=== PATIENT | male | born 1950 | race Caucasian/White ===

== ENCOUNTER → 2016-11-03 | Outpatient (CLI) | payer OTHER, BC ==
[~2016-11-03] MED LIST: CHROND PO; COEN400C5 PO; GLUCOSAMINE PO; IBUP-103 PO; OMEG-112 PO
[2016-11-03 14:04] LABS: ESTIMATED AVERAGE GLUCOSE 105 mg/dl; HA1C FLAG Normal (Normal)
[2016-11-03 14:10] LABS: ALT/SGPT 22 U/L (12-78); AST/SGOT 14 U/L (15-37); BLOOD UREA NITROGEN 17 mg/dl (7-18); BUN/CREATININE RATIO 17.8 (10-20); CALCIUM 8.8 mg/dl (8.5-10.1); CARBON DIOXIDE 31 mmol/L (21-32); CHLORIDE 103 mmol/L (98-107); CREATININE 0.95 mg/dl (0.60-1.40); GLUCOSE 82 mg/dl (70-99); POTASSIUM 4.8 mmol/L (3.5-5.1); SODIUM 140 mmol/L (136-145)
[2016-11-03 14:15] LABS: ALB/GLOB RATIO 1.3 (0.9-2); ALKALINE PHOSPHATASE 86 U/L (45-117)
== END | disposition home or self-care (01) ==
LOC: C.LABBC 09:53
PROVIDERS: ATTEND Internal Medicine Geriatric Medicine
DX: R97.20 Elevated prostate specific antigen [PSA] (principal); E78.5 Hyperlipidemia, unspecified; R73.9 Hyperglycemia, unspecified

== ENCOUNTER → 2016-12-22 | Outpatient (CLI) | payer OTHER, BC ==
[~2016-12-22] VITALS: Ht 175.3 cm; Wt 86.5 kg
[~2016-12-22] MED LIST changes: +ACETAMINOPHEN 500 MG TAB PO SCH; +CEFAZOLIN 2000 MG/60 ML D5W 60 ML IV SCH; +CeleBREX 200 MG CAP PO SCH; +DEXAMETHASONE 4 MG TAB PO SCH; +FAMOTIDINE 20 MG TAB PO SCH; +GABAPENTIN 300 MG CAP PO SCH; +LACTATED RINGER'S 1000ML 1,000 ML IV SCH; +LACTATED RINGER'S 1000ML 500 ML IV ONE; +LACTATED RINGER'S 1000ML IV SCH; +METOCLOPRAMIDE HCL 10 MG TAB PO SCH; +ROPIVACAINE 5MG/ML 30 ML 150 MG, BUPIVACAINE/EPINEPHR 0.5% MPF 30 ML, KETOROLAC TROMETH... INFIL SCH; +TRANEXAMIC ACID INJ 1,000 MG in SODIUM CHLORIDE 0.9% 100ML 100 ML IV SCH
[2016-12-22 08:27] VITALS: Ht 175.3 cm; Wt 86.5 kg
--- NOTE | 2016-12-22 09:01 | PAT Medication Instructions ---
Service Date Dec 22, 2016. Current Home Medication List Coenzyme Q10 (Ubidecarenone) (Coq10), 400 MG PO QAM Ibuprofen Tab (Advil), 400 MG PO PRN Medication Instructions For Your Scheduled Surgery Ibuprofen Tab (Advil), 400 MG PO PRN (not taking currently) - Hold the following medications 2 weeks prior to surgery: Coenzyme Q10 (Ubidecarenone) (Coq10), 400 MG PO QAM If you have any questions please call us at [phone] or [phone] ( [place]) or [phone]
--- NOTE | 2016-12-22 09:31 | DIAGNOSTIC IMAGING REPORT ---
TWO VIEW CHEST CLINICAL HISTORY: Preoperative examination. FINDINGS: PA and lateral chest radiographs are compared to study dated 08/17/2012. The cardiomediastinal silhouette is unremarkable. The lungs and pleural spaces are clear. There is no pneumothorax. The bony thorax appears intact. IMPRESSION: No active disease in the chest. Electronically signed by: Gabe Payne M.D. 12/22/2016 9:29 AM Dictated Date/Time: 12/22/2016 9:29 AM
[2016-12-22 09:37] LABS: BASO % 0.3 %; BASO ABS # 0.02 K/uL (0-0.2); COMPLETE YES; EOS % 3.4 %; HEMATOCRIT 43.1 % (42-52); IG% 0.2 %; LYMPH % 26.5 %; LYMPH ABS # 1.55 K/uL (1.2-3.4); MEAN CELL VOLUME 94.7 fL (80-100); MEAN CORPUSCULAR HEMOGLOBIN 32.5 pg (25-34); MEAN CORPUSCULAR HGB CONC 34.3 g/dl (32-36); MEAN PLATELET VOLUME 10.8 fL (7.4-10.4); MONO % 8.5 %; NEUT % 61.1 %; PLATELET COUNT 216 K/uL (130-400); RED BLOOD COUNT 4.55 M/uL (4.7-6.1); WHITE BLOOD COUNT 5.85 K/uL (4.8-10.8)
[2016-12-22 09:42] LABS: URINE APPEARANCE CLEAR (CLEAR); URINE BILIRUBIN NEG (NEG); URINE COLOR YELLOW; URINE NITRITE NEG (NEG); URINE PH 5.5 (4.5-7.5); URINE SPECIFIC GRAVITY 1.009 (1.000-1.030); UROBILINOGEN NEG (NEG)
[2016-12-22 09:45] LABS: MANUAL MICROSCOPIC REQUIRED? NO; REVIEW REQ? NO
[2016-12-22 09:52] LABS: PARTIAL THROMBOPLASTIN RATIO 0.9; PROTHROMBIN TIME (PATIENT) 10.3 SECONDS (9.0-12.0)
[2016-12-22 10:08] LABS: BUN/CREATININE RATIO 14.6 (10-20); CALCIUM 9.1 mg/dl (8.5-10.1); CREATININE 0.94 mg/dl (0.60-1.40); POTASSIUM 4.9 mmol/L (3.5-5.1)
[2016-12-22 10:16] LABS: ESTIMATED AVERAGE GLUCOSE 111 mg/dl; HA1C FLAG Normal (Normal)
--- NOTE | 2017-01-07 09:42 | HISTORY & PHYSICAL EXAMINATION ---
DATE OF ADMISSION: 01/08/2017 CHIEF COMPLAINT: Right knee pain. HISTORY OF PRESENT ILLNESS: The patient is a 66-year-old male with known osteoarthritis about his right knee. He had previous right knee arthroscopic surgery approximately 6 months ago. He continues to have ongoing pain and disability. He did have chondral changes noted at the time of his arthroscopy. He had previous left total knee arthroplasty without complication and now desires to proceed with right total knee arthroplasty. PAST MEDICAL HISTORY: Hyperlipidemia, BPH. PAST SURGICAL HISTORY: Left total knee arthroplasty, right knee arthroscopy. MEDICATIONS: None. ALLERGIES: DOXYCYCLINE, PERCOCET, AND LATEX. SOCIAL HISTORY AND REVIEW OF SYSTEMS: Noncontributory. PHYSICAL EXAMINATION: GENERAL: Well-nourished, well-developed, thin elderly male who appears his stated age. HEAD, EYES, EARS, NOSE, AND THROAT: Normocephalic, atraumatic, extraocular movements intact, oropharynx pink and moist. NECK: Supple without adenopathy. LUNGS: Clear to auscultation bilaterally. HEART: Regular rate and rhythm. ABDOMEN: Soft, nontender, nondistended. EXTREMITIES: The upper extremity within normal limits. The right knee has a slight varus alignment. He complains primarily of medial compartment pain. He has mild crepitus with range of motion. X-RAYS: X-rays were reviewed. He has a slight varus aligned knee. He has near bone on bone arthritis of the medial compartment with near complete loss of the joint space. He has mild degenerative change about the lateral and patellofemoral compartments. ASSESSMENT: Right knee degenerative joint disease. PLAN: Risks versus benefits were discussed. Consent was obtained. The patient's primary care physician is Dr. Abner Coates. Will proceed with right total knee arthroplasty upon preoperative workup and medical clearance.
--- NOTE | 2017-01-21 09:03 | HISTORY & PHYSICAL EXAMINATION ---
DATE OF ADMISSION: 01/22/2017 CHIEF COMPLAINT: Right knee pain. HISTORY OF PRESENT ILLNESS: The patient is a 66-year-old male with known osteoarthritis about his right knee. He had a previous left total knee arthroplasty several years ago with good success. He now has ongoing pain and disability with activities of daily living due to his right knee pain. He now desires to proceed with right total knee arthroplasty. PAST MEDICAL HISTORY: Hyperlipidemia, osteoarthritis, and BPH. PAST SURGICAL HISTORY: Left knee as above and right knee arthroscopy July 2016. MEDICATIONS: None. ALLERGIES: INCLUDE DOXYCYCLINE. SOCIAL HISTORY AND REVIEW OF SYSTEMS: Noncontributory. PHYSICAL EXAMINATION: GENERAL: Well-nourished, well-developed elderly male who appears his stated age. HEENT: Normocephalic, atraumatic, extraocular movements intact, oropharynx pink and moist. NECK: Supple without adenopathy. LUNGS: Clear to auscultation bilaterally. HEART: Regular rate and rhythm. ABDOMEN: Soft, nontender. EXTREMITIES: The upper extremity within normal limits. The right knee has a slight varus alignment. He complains primarily of medial compartment pain. His range of motion is from 0-120 degrees. X-RAYS: X-rays were reviewed. He has a slight varus aligned knee. He has near bone on bone arthritis of the medial compartment with near complete loss of the joint space. He has mild degenerative change about the patellofemoral joint. ASSESSMENT: Right knee degenerative joint disease. PLAN: Risks versus benefits were discussed and consent was obtained. The patient's primary care physician is Dr. Abner Coates. Will proceed with right total knee arthroplasty upon preoperative workup and medical clearance.
--- NOTE | 2017-03-04 12:23 | CODING QUERY MEDICAL NECESSITY ---
SUPPORTING DIAGNOSIS NEEDED Dr. Gaming, A supporting diagnosis is required for the test/procedure performed on this patient in order for us to be reimbursed by the patient's insurance. Please provide a supporting diagnosis for the following test/procedure listed below next to the test name along with your signature. *If there is no additional diagnosis for this patient that would support the following test/procedure please document that below next to the test/procedure. Test(s)/Procedure(s) that require a supporting diagnosis: * [id number] GLYCATED HEMOGLOBIN DIAGNOSIS: DATE OF SERVICE: 12/22/16 Provider Signature: Date: Thank you [facility] Information Management Once completed, please kindly fax back to [phone] For questions please call [phone]
== END | disposition home or self-care (01) ==
LOC: C.LAB 08:00 → EDSTATUS 01-22 14:41
DX: Z01.812 Encounter for preprocedural laboratory examination (principal); Z01.810 Encounter for preprocedural cardiovascular examination; M17.11 Unilateral primary osteoarthritis, right knee

== ENCOUNTER → 2017-01-07 | Outpatient (CLI) | payer OTHER, BC ==
[~2017-01-07] MED LIST changes: -ACETAMINOPHEN 500 MG TAB PO SCH; -CEFAZOLIN 2000 MG/60 ML D5W 60 ML IV SCH; -CHROND PO; -CeleBREX 200 MG CAP PO SCH; -DEXAMETHASONE 4 MG TAB PO SCH; -FAMOTIDINE 20 MG TAB PO SCH; -GABAPENTIN 300 MG CAP PO SCH; -GLUCOSAMINE PO; -LACTATED RINGER'S 1000ML 1,000 ML IV SCH; -LACTATED RINGER'S 1000ML 500 ML IV ONE; -LACTATED RINGER'S 1000ML IV SCH; -METOCLOPRAMIDE HCL 10 MG TAB PO SCH; -OMEG-112 PO; -ROPIVACAINE 5MG/ML 30 ML 150 MG, BUPIVACAINE/EPINEPHR 0.5% MPF 30 ML, KETOROLAC TROMETH... INFIL SCH; -TRANEXAMIC ACID INJ 1,000 MG in SODIUM CHLORIDE 0.9% 100ML 100 ML IV SCH
== END | disposition home or self-care (01) ==
LOC: C.LABSPEC 12:09
PROVIDERS: ATTEND Dermatology
DX: L08.9 Local infection of the skin and subcutaneous tissue, unspecified (principal)

== ENCOUNTER 2017-11-12 06:11 | Inpatient (IN) | payer OTHER, BC ==
--- NOTE | 2017-10-13 12:47 | PAT Medication Instructions ---
Service Date Oct 13, 2017. Current Home Medication List Coenzyme Q10 (Ubidecarenone) (Coq10), 400 MG PO QAM Qgtqwgsvrmg-Hwwtwqfpnhx-Pdu C- (Glucosamine Chondroitin), 1 CAP PO QAM Medication Instructions For Your Scheduled Surgery - Hold the following medications 2 weeks prior to surgery: Coenzyme Q10 (Ubidecarenone) (Coq10), 400 MG PO QAM Dydcbddspty-Syhximhnext-Jvf C- (Glucosamine Chondroitin), 1 CAP PO QAM If you have any questions please call us at [phone] or [phone] or [phone]
[2017-10-13 13:08] LABS: BASO % 0.3 %; BASO ABS # 0.02 K/uL (0-0.2); EOS % 3.5 %; EOS ABS # 0.23 K/uL (0-0.5); HEMATOCRIT 43.6 % (42-52); IG# 0.01 K/uL (0.00-0.02); LYMPH % 25.6 %; MEAN CELL VOLUME 95.2 fL (80-100); MEAN CORPUSCULAR HEMOGLOBIN 32.8 pg (25-34); MEAN CORPUSCULAR HGB CONC 34.4 g/dl (32-36); MEAN PLATELET VOLUME 10.4 fL (7.4-10.4); MONO % 8.3 %; MONO ABS # 0.55 K/uL (0.11-0.59); NEUT % 62.1 %; NEUT ABS # 4.13 K/uL (1.4-6.5); PLATELET COUNT 230 K/uL (130-400); RED CELL DISTRIBUTION WIDTH CV 12.8 % (11.5-14.5); RED CELL DISTRIBUTION WIDTH SD 44.6 fL (36.4-46.3); WHITE BLOOD COUNT 6.64 K/uL (4.8-10.8)
[2017-10-13 13:18] LABS: PTT PATIENT 24.3 SECONDS (21.0-31.0)
[2017-10-13 13:25] LABS: HEMOGLOBIN A1C 5.5 % (4.5-5.6)
[2017-10-13 14:51] LABS: ALBUMIN 3.9 gm/dl (3.4-5.0); BLOOD UREA NITROGEN 19 mg/dl (7-18); CALCIUM 9.1 mg/dl (8.5-10.1); CARBON DIOXIDE 29 mmol/L (21-32); CREATININE 0.88 mg/dl (0.60-1.40); GLUCOSE 89 mg/dl (70-99); POTASSIUM 5.2 mmol/L (3.5-5.1); SODIUM 137 mmol/L (136-145)
[2017-10-13 15:44] VITALS: Ht 175.3 cm; Wt 83.6 kg
--- NOTE | 2017-10-14 15:12 | HISTORY & PHYSICAL EXAMINATION ---
DATE OF ADMISSION: 10/12/2017 CHIEF COMPLAINT: Right knee pain. HISTORY OF PRESENT ILLNESS: Jordan is a 67-year-old male with a 2-year history of right knee pain. The patient rates his pain a 10/10. He has pain with his daily activities. He has limited standing and walking tolerance. Pain is worse with weightbearing. The patient has had injections, physical therapy, ice and bracing over the years without relief. He has failed conservative treatment and is scheduled for right knee replacement. PAST MEDICAL HISTORY: Benign. He denies heart disease, diabetes or DVT. PAST SURGICAL HISTORY: Left knee x3, right knee x1, left ankle ORIF, trigger finger repair, ORIF right wrist and tonsillectomy. SOCIAL HISTORY: The patient denies alcohol or tobacco use. He lives in a [address]-ram[address] home. He is and retired. FAMILY HISTORY: Negative for DVT. MEDICATIONS: None. ALLERGIES: THE PATIENT BELIEVES HE IS ALLERGIC TO A PAIN MEDICATION, but he is unsure of the name and HIS REACTION WAS HIVES. REVIEW OF SYSTEMS: See HPI. Ten other systems reviewed, all negative. PHYSICAL EXAMINATION: VITAL SIGNS: Height 5 feet 9 inches, weight 186 pounds, BMI 27. GENERAL: This is a well-developed, well-nourished male who is alert and oriented x3. Mood and affect are appropriate. HEENT: Normocephalic, atraumatic. Mucous membranes are moist and intact. NECK: Supple without lymphadenopathy. HEART: Regular rate and rhythm without murmurs, rubs or gallops. LUNGS: Clear to auscultation without wheezes or rhonchi. ABDOMEN: Soft and nontender. Bowel sounds are equal and active. EXTREMITIES: No ecchymosis, redness or warmth. He has neutral alignment. Range of motion is from 0-115 degrees with +2 laxity. He is neurovascularly intact with +5/5 strength. X-RAY EXAMINATION: AP and lateral views show joint space narrowing and osteophyte formation. IMPRESSION: Degenerative joint disease, right knee. PLAN: The patient will be admitted for a right total knee arthroplasty. We will plan on aspirin for DVT prophylaxis. The patient is ongoing use [facility] for home physical therapy, referral has been faxed. PCP is Dr. Coates at [facility].
[~2017-11-12] VITALS: Ht 175.3 cm; Wt 83.6 kg
[2017-11-12] VITALS (7 sets, daily range): BP systolic 93–123; BP diastolic 54–67; PULSE 48–74; TEMP 36.3–37.1; O2SAT 93–98
[~2017-11-12 06:11] MED LIST changes: +ACETAMINOPHEN 500 MG TAB PO SCH; +CEFAZOLIN 2000MG IV PUSH 10 ML IV SCH; +CeleBREX 200 MG CAP PO SCH; +DEXAMETHASONE 4 MG TAB PO SCH; +FAMOTIDINE 20 MG TAB PO SCH; +GABAPENTIN 300 MG CAP PO SCH; +GLUC1CAP35 PO; -IBUP-103 PO; +LACTATED RINGER'S 1000ML 1,000 ML IV SCH; +LACTATED RINGER'S 1000ML 500 ML IV SCH; +METOCLOPRAMIDE HCL 10 MG TAB PO SCH; +ROPIVACAINE 5MG/ML 30 ML 150 MG, BUPIVACAINE 0.5% MPF INJ 30 ML, EpINEphrine HCL INJ 0.... INFIL SCH
[2017-11-12] MEDS ORDERED: BUPIVACAINE 0.5 % 5 MG/1 ML PF 10ML VIAL ONE (06:22)
[2017-11-12] MEDS ORDERED: BUPIVACAINE 0.25% 30 ML VIAL ONE (06:22)
[2017-11-12] MEDS ORDERED: ASPI81TA28 PO (06:50)
--- NOTE | 2017-11-12 07:02 | History & Physical Bridge Note ---
H&P Re-Evaluation Bridge Note: I have examined the patient, reviewed the History & Physical and in the interval since the performance of the History & Physical I have noted the following changes of clinical significance: No changes noted
[2017-11-12] MEDS ORDERED: POVIDONE-IODINE OP SOLN 30 ML BTL ONE (07:04)
[2017-11-12] MEDS ORDERED: ORTHO JOINT ANESTHETIC ONE (07:04)
[2017-11-12] MEDS ORDERED: BACITRACIN 50000 UNIT VIAL ONE (07:04)
[2017-11-12] MEDS ORDERED: MIDAZOLAM HCL 1 MG/ML 2ML VIAL ONE (07:18)
[2017-11-12] MEDS: TRANEXAMIC ACID INJ 1,000 MG in SYRINGE 0 ML IV SCH ×2 (07:40→13:55)
[2017-11-12] MEDS ORDERED: FENTANYL CITRATE INJ 50 MCG/1 ML 2 ML VIAL ONE (08:22)
[2017-11-12] MEDS ORDERED: EpHEDrine SULFATE INJ 50 MG/ML AMP IV PRN (08:30)
[2017-11-12] MEDS ORDERED: LABETALOL HCL IV 5 MG/ML 20ML IV PRN (08:30)
[2017-11-12] MEDS ORDERED: FENTANYL CITRATE INJ 50 MCG/1 ML 2 ML VIAL IV PRN (08:30)
[2017-11-12] MEDS ORDERED: MEPERIDINE HCL 25 MG/ML CARP IV PRN (08:30)
[2017-11-12] MEDS ORDERED: ATROPINE SULFATE 0.1 MG/ML 5ML SYR IV PRN (08:30)
[2017-11-12] MEDS ORDERED: ONDANSETRON INJ 2 MG/ML 2 ML VIAL IV PRN ×2 (08:30→09:45)
[2017-11-12] MEDS ORDERED: HYDROmorphone INJ 1 MG/ML SYR IV PRN (08:30)
[2017-11-12] MEDS ORDERED: DEXAMETHASONE SOD INJ 4 MG/ML VIAL ONE (08:51)
[2017-11-12] MEDS ORDERED: ONDANSETRON INJ 2 MG/ML 2 ML VIAL ONE (08:51)
[2017-11-12] MEDS ORDERED: PROPOFOL IV EMULSION 10 MG/ML 20 ML VIAL IV ONE (08:51)
--- NOTE | 2017-11-12 09:09 | [facility] Post Operative Brief Note ---
Immediate Operative Summary Operative Date Nov 12, 2017. Pre-Operative Diagnosis Right Knee Degenerative Joint Disease Post-Operative Diagnosis Right Knee Degenerative Joint Disease Procedure(s) Performed Right Total Knee Arthroplasty, Cemented Surgeon Dr. Gaming Bean Snapper Surgeon(s) Elvis Lugo PA-C Estimated Blood Loss 10 mL Findings severe OA Specimens A: Right knee bone and tissue Complication(s) None Disposition Recovery Room / PACU
--- NOTE | 2017-11-12 09:22 | OPERATIVE REPORT ---
DATE OF OPERATION: 11/12/2017 PREOPERATIVE DIAGNOSIS: Osteoarthritis, right knee. POSTOPERATIVE DIAGNOSIS: Osteoarthritis, right knee. PROCEDURE: Right total knee arthroplasty. SURGEON: Dr. Gaming. SOCIAL ORGANIZATION PROFESSOR: STEVAN Hoffmann ANESTHESIA: Spinal. COMPLICATIONS: None. IMPLANTS USED: Femoral size 4, tibia size 4, tibial poly 19, and patella size 36. OPERATION AND FINDINGS: Following induction of spinal anesthesia, the patient's right leg was prepped and draped in the usual sterile manner. Limb was exsanguinated with an Esmarch bandage and tourniquet was inflated to 350 mmHg. A longitudinal incision was made anteriorly. Subcutaneous tissue was sharply dissected. Electrocautery was used for hemostasis. Prepatellar bursa was incised and median parapatellar incision was performed. Patella was everted and the knee was flexed. Fat pad was removed to aid in visualization and the anterior and posterior cruciate ligaments were removed. The medial face of the tibia was cleared of soft tissue first with a Bovie and a Medina elevator. This tissue was retracted posteriorly using a blunt Hohmann. A Vásquez retractor was used to expose the synovium above on the anterior aspect of the femur and this was removed down to bone. The PSI guide was placed on the distal femur and two pins were placed anteriorly and kept in position and two additional pins were placed distally and removed. The distal femoral cutting block was placed in position and the distal femoral cut was used in the +0 setting. Next, the cutting block was removed and the femoral 4 block was placed in the distal end of the femur. Care was taken to ensure appropriate external rotation and feeler gauge was used to ensure no notching would occur. The femoral block was centered on the distal femur and in the medial and lateral direction and was fixed using two bone screws. The gold pins were then removed. The oscillating saw was used to create the bone cuts and the distal femoral cutting block was removed and the reciprocating saw was used to further trim the femoral cuts as well as a deep in the area for the trochlear groove. Next, posterior condyle remnants were removed. Following this, a meniscal clamp and knife were utilized to remove the anterior portion of both medial and lateral meniscus. The proximal tibia PSI guide was placed into position and the proximal tibial cutting guide was screwed into position. The extra medullary alignment guide was utilized to ensure appropriate alignment. The proximal tibia was cut and the proximal tibial cutting block was removed and this bone fragment was removed. The appropriate guide was used to perform the notch cut on the distal femur and a lamina flooring machine feeder and a cochlear knife were utilized to finish both medial and lateral meniscectomies to remove any remnants of the posterior or anterior cruciate ligaments. Following this, the distal femoral component was impacted into position and blunt Karthik was used to sublux the tibia anteriorly. The proximal tibia was sized and a 4 tibial tray was chosen as the size to be used. This was put into position and appropriate external rotation and a double check with extramedullary alignment guide was performed. The canal for the tibial stem was prepared first with a 17 mm drill and then the punch and a mallet and the trial tibial poly was placed. A 19 was chosen the size to be used. It was brought to extension and the patella was prepared with the patellar reamer. A 36 component was chosen the size to be used. The trial component was placed and knee was taken through a full range of motion and there was found to be no lateral subluxation of the tibia. No lateral release was required. The trials were all removed. The final components were obtained and assembled. Cement was mixed. The knee was thoroughly irrigated and the ortho mix was injected about the knee joint. The final components were cemented into position. After thoroughly suctioning and drying the bone ends, all excess cement was removed. The knee was held in extension while the cement hardened. The wound was irrigated and closed over a Hemovac drain. #1 Vicryl was used to close the extensor mechanism. Subcutaneous tissues closed using 0 Dexon. Skin was closed with jono. Sterile dressing of Adaptic, 4 x 4's, sterile Webril, and Guillermo was applied. The patient tolerated the procedure well. Due to the complex nature of the procedure, the entire surgery was performed with the operational assistance of STEVAN Hoffmann. The executive assistant, under direct supervision, was involved in the actual performance of all aspects of the surgical procedure including hemostasis, tissue retraction and incision, instrument management, patient positioning, and wound closure. DISPOSITION: Recovery room, stable. I attest to the content of the Intraoperative Record and any orders documented therein. Any exception s are noted below.
[2017-11-12] MEDS ORDERED: TAMSULOSIN HCL 0.4 MG CAP PO PRN (09:45)
[2017-11-12] MEDS ORDERED: TAPENTADOL HCL 50 MG TAB PO PRN (09:45)
[2017-11-12] MEDS ORDERED: MAGNESIUM HYDROXIDE SUSP 30 ML UDC PO PRN (09:45)
[2017-11-12] MEDS ORDERED: ALUMINUM/MAGNESIUM/SIMETH (MAALOX MAX) 30 ML UDC PO PRN (09:45)
--- NOTE | 2017-11-12 10:26 | DIAGNOSTIC IMAGING REPORT ---
R KNEE 1 OR 2 VIEWS ROUTINE CLINICAL HISTORY: AP/LATERAL IN PACU RIGHT KNEE COMPARISON: None. DISCUSSION: Total joint replacement. Good contact between prosthetic and underlying bone. Surgical drains are in position. Expected soft tissue postoperative change. IMPRESSION: Anatomic alignment status post total right knee replacement. The above report was generated using voice recognition software. It may contain grammatical, syntax or spelling errors. Electronically signed by: Bubba Caballero M.D. 11/12/2017 10:25 AM Dictated Date/Time: 11/12/2017 10:24 AM
--- NOTE | 2017-11-12 10:45 | Anesthesiology Progress Note ---
Anesthesia Post Op Note Date & Time Nov 12, 2017 at 10:45 Vital Signs Pain Intensity: 0 Vital Signs Past 12 Hours Date Time Temp Pulse Resp B/P (MAP) Pulse Ox O2 Delivery O2 Flow Rate FiO2 11/12/17 10:41 36.6 55 17 104/60 (73) 96 Nasal Cannula 2 11/12/17 10:38 55 14 98 11/12/17 10:38 55 14 11/12/17 10:35 104/60 11/12/17 10:33 53 13 97 11/12/17 10:33 53 13 11/12/17 10:30 108/60 11/12/17 10:28 61 21 97 11/12/17 10:28 59 21 11/12/17 10:26 91/47 11/12/17 10:23 55 14 97 11/12/17 10:23 55 14 11/12/17 10:21 99/58 11/12/17 10:18 55 10 11/12/17 10:18 55 10 96 11/12/17 10:15 104/57 11/12/17 10:13 55 13 11/12/17 10:13 54 13 95 11/12/17 10:12 55 12 11/12/17 10:12 55 12 95 11/12/17 10:11 102/57 11/12/17 10:07 58 16 11/12/17 10:07 56 16 94 11/12/17 10:06 100/56 11/12/17 10:02 61 13 96 11/12/17 10:02 60 13 11/12/17 10:01 60 15 11/12/17 10:01 59 15 96 11/12/17 10:00 108/59 11/12/17 09:56 56 15 11/12/17 09:56 56 15 96 11/12/17 09:55 104/56 11/12/17 09:51 59 12 98/54 96 11/12/17 09:51 58 12 11/12/17 09:46 36.6 55 16 111/63 95 Room Air 10 11/12/17 09:46 56 15 11/12/17 09:46 56 15 111/63 96 11/12/17 07:05 36.7 48 18 123/67 98 Room Air Notes Mental Status: alert / awake / arousable, participated in evaluation Pt Amnestic to Procedure: Yes Nausea / Vomiting: adequately controlled Pain: adequately controlled Airway Patency, RR, SpO2: stable & adequate BP & HR: stable & adequate Hydration State: stable & adequate Neuraxial Anesthesia: was administered, sensory block is resolving Anesthetic Complications: no major complications apparent
[2017-11-12] MEDS: D5W AND 1/2NSS + 20MEQ KCL 1,000 ML IV SCH (17:14)
[2017-11-12] MEDS: CEFAZOLIN IV 2,000 MG in SYRINGE 0 ML IV SCH (17:15)
[2017-11-12] MEDS: ACETAMINOPHEN 500 MG TAB PO SCH ×2 (17:15→21:48)
[2017-11-12] MEDS: KETOROLAC TROMETHAMINE 15 MG/ML VIAL IV. SCH ×2 (17:24→21:51)
[2017-11-12] MEDS: FERROUS GLUCONATE 324 MG TAB PO SCH (17:25)
[2017-11-12] MEDS ORDERED: SENNA 8.6 MG TAB PO SCH (21:00)
[2017-11-12] MEDS: DOCUSATE SODIUM 100 MG CAP PO SCH (21:48)
[2017-11-12] MEDS: ASPIRIN 81 MG ECTAB PO SCH (21:48)
[2017-11-13] MEDS: D5W AND 1/2NSS + 20MEQ KCL 1,000 ML IV SCH (00:29)
[2017-11-13] MEDS: CEFAZOLIN IV 2,000 MG in SYRINGE 0 ML IV SCH (00:29)
[2017-11-13] MEDS: KETOROLAC TROMETHAMINE 15 MG/ML VIAL IV. SCH ×2 (03:10→08:51)
[2017-11-13 03:13] VITALS: BP 91/55; PULSE 61; TEMP 37; O2SAT 95
[2017-11-13] MEDS: ACETAMINOPHEN 500 MG TAB PO SCH ×2 (05:14→13:46)
[2017-11-13 05:19] LABS: HEMATOCRIT 33.9 % (42-52); HEMOGLOBIN 11.2 g/dL (14.0-18.0); MEAN CELL VOLUME 95.2 fL (80-100); MEAN CORPUSCULAR HEMOGLOBIN 31.5 pg (25-34); MEAN PLATELET VOLUME 10.7 fL (7.4-10.4); PLATELET COUNT 182 K/uL (130-400); RED CELL DISTRIBUTION WIDTH CV 12.7 % (11.5-14.5); RED CELL DISTRIBUTION WIDTH SD 44.2 fL (36.4-46.3); WHITE BLOOD COUNT 14.49 K/uL (4.8-10.8)
[2017-11-13 05:57] LABS: CALCIUM 8.5 mg/dl (8.5-10.1); CREATININE 1.04 mg/dl (0.60-1.40)
[2017-11-13 07:18] VITALS: BP 95/58; PULSE 57; TEMP 36.6; O2SAT 94
--- NOTE | 2017-11-13 07:49 | Anesthesiology Progress Note ---
Anesthesia Post Op Note Date & Time Nov 13, 2017 at 07:46 Vital Signs Pain Intensity: 0.0 Vital Signs Past 12 Hours Date Time Temp Pulse Resp B/P (MAP) Pulse Ox O2 Delivery O2 Flow Rate FiO2 11/13/17 07:18 36.6 57 18 95/58 (70) 94 Room Air 11/13/17 03:13 37.0 61 15 91/55 (67) 95 Room Air 11/13/17 00:30 Room Air 11/12/17 22:55 36.6 57 16 101/54 (70) 97 Room Air Notes Mental Status: alert / awake / arousable, participated in evaluation Pt Amnestic to Procedure: Yes Nausea / Vomiting: adequately controlled Pain: adequately controlled Airway Patency, RR, SpO2: stable & adequate BP & HR: stable & adequate Hydration State: stable & adequate Neuraxial Anesthesia: sensory block resolved Anesthetic Complications: no major complications apparent spinal anesthesia converted to general with LMA. Patient has no recall of OR events. Denied post-operative pain
--- NOTE | 2017-11-13 07:58 | Orthopedic Progress Note ---
Orthopedic Progress Note Date of Service Nov 13, 2017. Subjective Post OP Day: 1 Reports: feeling well Objective N/V intact, dressing C/D/I (Hemovac in place), toes mobile Date Time Temp Pulse Resp B/P (MAP) Pulse Ox O2 Delivery O2 Flow Rate FiO2 11/13/17 07:18 36.6 57 18 95/58 (70) 94 Room Air 11/13/17 03:13 37.0 61 15 91/55 (67) 95 Room Air 11/13/17 00:30 Room Air 11/12/17 22:55 36.6 57 16 101/54 (70) 97 Room Air 11/12/17 19:05 36.6 73 18 105/58 (74) 97 Room Air 11/12/17 16:30 Room Air 11/12/17 15:50 37.1 74 16 103/54 (70) 94 Room Air 11/12/17 14:30 36.3 55 19 98/60 (73) 93 Room Air 11/12/17 13:00 36.3 56 16 99/63 (75) 94 Nasal Cannula 2.0 11/12/17 12:24 96 Nasal Cannula 2.0 11/12/17 12:24 37.0 64 16 93/56 (68) 96 Nasal Cannula 2.0 11/12/17 12:24 96 Nasal Cannula 2.0 11/12/17 12:06 59 12 11/12/17 12:06 59 12 96 11/12/17 12:01 66 18 104/53 97 11/12/17 12:01 64 18 11/12/17 11:56 57 14 98 11/12/17 11:56 53 14 11/12/17 11:51 55 14 97 11/12/17 11:51 58 14 11/12/17 11:46 58 14 11/12/17 11:46 52 14 115/53 96 11/12/17 11:41 63 10 11/12/17 11:41 66 10 97 11/12/17 11:36 59 15 96 11/12/17 11:36 58 15 11/12/17 11:35 52 13 97 11/12/17 11:35 54 13 11/12/17 11:31 113/64 11/12/17 11:30 57 11 97 11/12/17 11:30 56 11 1/18/18 11:25 56 13 1/18/18 11:25 56 13 96 /18/18 11:20 54 12 /18/18 11:20 55 12 96 /18/18 11:16 114/60 /18/18 11:15 63 22 98 1/18/18 11:15 61 22 /18/18 11:10 54 10 97 /18/18 11:10 54 10 18/18 11:09 53 13 115/64 97 18/18 11:09 54 13 18/18 11:06 113/66 18/18 11:04 52 15 18/18 11:04 49 15 97 18/18 11:01 116/63 18/18 10:59 54 13 97 18/18 10:59 54 13 18/18 10:57 81/49 /18/18 10:55 81/49 18/18 10:54 58 11 97 18/18 10:54 56 11 18/18 10:50 104/58 18/18 10:49 53 10 18/18 10:49 54 10 97 /18/18 10:45 106/60 /18/18 10:44 52 0 97 /18/18 10:44 52 0 /18/18 10:41 36.6 55 17 104/60 (73) 96 Nasal Cannula 2 11/12/18 10:41 95/55 /18/18 10:39 54 16 /18/18 10:39 57 16 92 18/18 10:38 55 14 98 /18/18 10:38 55 14 /18/18 10:35 104/60 /18/18 10:33 53 13 97 /18/18 10:33 53 13 /18/18 10:30 108/60 /18/18 10:28 61 21 97 /18/18 10:28 59 21 /18/18 10:26 91/47 /18/18 10:23 55 14 97 /18/18 10:23 55 14 /18/18 10:21 99/58 /18/18 10:18 55 10 18/18 10:18 55 10 96 18/18 10:15 104/57 11/12/17 10:13 55 13 11/12/17 10:13 54 13 95 11/12/17 10:12 55 12 11/12/17 10:12 55 12 95 11/12/17 10:11 102/57 11/12/17 10:07 58 16 11/12/17 10:07 56 16 94 11/12/17 10:06 100/56 11/12/17 10:02 61 13 96 11/12/17 10:02 60 13 11/12/17 10:01 60 15 11/12/17 10:01 59 15 96 11/12/17 10:00 108/59 11/12/17 09:56 56 15 11/12/17 09:56 56 15 96 11/12/17 09:55 104/56 11/12/17 09:51 59 12 98/54 96 11/12/17 09:51 58 12 11/12/17 09:46 36.6 55 16 111/63 95 Room Air 10 11/12/17 09:46 56 15 11/12/17 09:46 56 15 111/63 96 Laboratory Results 24 Hours: Test 11/13/17 05:04 Hematocrit 33.9 % Hemoglobin 11.2 g/dL Assessment & Plan Assessment: 67 yo male stable POD #1 s/p right TKA Plan: 1. Med management- 2. DVT prophylaxis- ASA, SCDs 3. PT/OT 4. D/C planning- home w/out services
[2017-11-13] MEDS ORDERED: NCY50 PO (08:01)
[2017-11-13] MEDS ORDERED: CLB200 PO (08:01)
[2017-11-13] MEDS ORDERED: ONDA8TAB12 PO (08:01)
[2017-11-13] MEDS ORDERED: ACET-24 PO (08:01)
[2017-11-13] MEDS ORDERED: ASPEC81 PO (08:01)
--- NOTE | 2017-11-13 08:03 | Discharge Instructions ---
Discharge Instructions Date of Service Nov 13, 2017. Admission Reason for Admission: Right Knee Osteoarthritis Discharge Discharge Diagnosis / Problem: Right total knee arthroplasty Discharge Goals Goal(s): Decrease discomfort, Improve function Activity Recommendations Activity Limitations: as noted below Weightbearing Status: Right weightbearing (as tolerated) . Instructions / Follow-Up Instructions / Follow-Up ACTIVITY RECOMMENDATIONS: SELF CARE INSTRUCTIONS AFTER TOTAL KNEE REPLACEMENT A. You may need to continue a physical therapy program after discharge from the hospital. There are several options available to you. Your doctor will assist you in selecting the best one for you. 1. An out-patient facility 2 to 3 times a week for therapy or home therapy. 2. Continue working on all exercises taught to you in the hospital. Your goals should be to increase bending of your knee to 90 degrees and beyond and to fully straighten your knee. B. You may progress at your own pace from walking with a walker or crutches to a cane; then to no assistive devices. C. Make walking a part of your daily routine. Be up as much as comfortable with rest periods throughout the day. Rest with leg elevation is very important. Use the ice wrap frequently for the first 3-4 weeks. D. There are no restrictions on activities. 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 E. Wear the long elastic stockings (BLANCA hose) 20 hours a day for 2 weeks after surgery. They can be removed several times a day for laundering and for a bath. F. You may shower, no tub baths until cleared by your doctor. SPECIAL CARE INSTRUCTIONS: VERY IMPORTANT TO READ AND REVIEW A. There are a few signs you need to watch for after you are home. Call [facility] if you notice any of the followin. Increased severe knee pain. Some pain is expected especially when you exercise. 2. Increased swelling in your leg or knee; pain or swelling of the calf muscle in either lower leg. 3. Any fluid drainage from the incision. 4. Shortness of breath or chest pain. B. Please call [facility] at if you have any concerns or questions about your operation or recovery. The doctor or his nurse will return your call promptly. C. You must take antibiotics before dental work, bladder, bowel or other surgery. Your doctor will provide you with a permanent care to carry describing this precaution. IMPORTANT: * REMEMBER TO TAKE ASPIRIN, 81 MG, TWICE DAILY FOR 4 WEEKS UNLESS OTHERWISE DIRECTED. THIS IS YOUR BLOOD THINNER. * HIGH RISK PATIENTS MAY BE PRESCRIBED A STRONGER BLOOD THINNER. THIS WILL BE PROVIDED AT DISCHARGE. * CALL IF INCREASED PAIN, REDNESS, DRAINAGE OR FEVER GREATER THAT 101. * WEAR BLANCA HOSE 20 HOURS PER DAY FOR 2 WEEKS. Silverlon- This is a large adhesive bandage that contains silver ions. This helps your incision heal by fighting off bacteria and protecting it from the outside environment. You are permitted to shower with this dressing. This will remain on your incision for 7 days and then should be removed. Some visible blood or drainage through the dressing window is normal. If there is significant drainage or leaking noted before the 7 days notify your doctor's office immediately. Once removed, keep incision clean and dry. If there is any drainage or redness noted, please call your surgeon. FOLLOW UP VISIT: If appointment is not already scheduled: Please call [facility] to make a follow-up appointment for 2 weeks after your surgery at . Current Hospital Diet Patient's current hospital diet: Regular Diet Discharge Diet Recommended Diet: Regular Diet Procedures Procedures Performed: Right Total Knee Arthroplasty, Cemented Pending Studies Studies pending at discharge: no Laboratory Results Hemoglobin A1c Test 10/13/17 12:47 Range/Units Estimated Average Glucose 111 mg/dl Hemoglobin A1c 5.5 4.5-5.6 % Medical Emergencies . Who to Call and When: Medical Emergencies: If at any time you feel your situation is an emergency, please call 911 immediately. . Non-Emergent Contact Non-Emergency issues call your: Surgeon Call Non-Emergent contact if: temperature is above 101.5, your pain is not controlled, wound has increased drainage, wound has increased redness . "Provider Documentation" section prepared by Wei Whitten PA-C. . VTE Core Measure Inpt VTE Proph given/why not?: Other Anticoagulation (ASA), T.E.D. Stockings, SCD's [place] Drug Monitoring Program Search Results: patient reviewed within database, no issues identified
[2017-11-13] MEDS: FERROUS GLUCONATE 324 MG TAB PO SCH ×2 (08:47→12:40)
[2017-11-13] MEDS: DOCUSATE SODIUM 100 MG CAP PO SCH (08:47)
[2017-11-13] MEDS: ASPIRIN 81 MG ECTAB PO SCH (08:47)
[2017-11-13] MEDS ORDERED: MULTIVITAMIN TAB PO SCH (09:00)
--- NOTE | 2017-11-13 09:00 | Clinical Documentation Query ---
CLINICAL DOCUMENTATION QUERY Mr. KENT, In your clinical opinion is this patient being managed for: ( X ) Expected acute blood loss anemia ( ) Not Agree ( ) Other explanation of clinical findings (Please Explain) ( ) Unable to determine (Please Define) ( ) Need to Discuss The medical record reflects the following clinical findings, treatment, and risk factors. Clinical Indicators:67 yo male presenting with R knee DJD for a R TKA. Baseline Hgb 15/Hct 43.6 which trended down to 11.2/33.9. EBL of 10 cc with 675 cc hemovac drainage thus far postop. Treatment: monitor CBC's Risk Factors: surgery with hemovac blood loss Please clarify and document your clinical opinion in the progress notes and discharge summary. Terms such as "probable", "suspected", "likely", "questionable", "possible", or "still to be ruled out" are acceptable. IF IN AGREEMENT, YOU MUST DOCUMENT ABOVE DIAGNOSTIC STATEMENT IN DAILY PROGRESS NOTES AND DISCHARGE SUMMARY. This document is not part of the patient's record. Thank You, Caitlyn Lora, RN [phone]
--- NOTE | 2017-11-13 09:01 | Clinical Documentation Query ---
CLINICAL DOCUMENTATION QUERY Dr. HAYNES, In your clinical opinion is this patient being managed for: ( ) Expected acute blood loss anemia ( ) Not Agree ( ) Other explanation of clinical findings (Please Explain) ( ) Unable to determine (Please Define) ( ) Need to Discuss The medical record reflects the following clinical findings, treatment, and risk factors. Clinical Indicators:67 yo male presenting with R knee DJD for a R TKA. Baseline Hgb 15/Hct 43.6 which trended down to 11.2/33.9. EBL of 10 cc with 675 cc hemovac drainage thus far postop. Treatment: monitor CBC's Risk Factors: surgery with hemovac blood loss Please clarify and document your clinical opinion in the progress notes and discharge summary. Terms such as "probable", "suspected", "likely", "questionable", "possible", or "still to be ruled out" are acceptable. IF IN AGREEMENT, YOU MUST DOCUMENT ABOVE DIAGNOSTIC STATEMENT IN DAILY PROGRESS NOTES AND DISCHARGE SUMMARY. This document is not part of the patient's record. Thank You, Caitlyn Lora, RN [phone]
[2017-11-13 12:34] VITALS: BP 95/58; PULSE 57; TEMP 36.6; O2SAT 94
[2017-11-14] MEDS ORDERED: CeleBREX 200 MG CAP PO SCH (21:00)
--- NOTE | 2017-11-16 19:15 | DISCHARGE SUMMARY ---
DISCHARGE DIAGNOSIS: Degenerative joint disease, right knee. CONSULTS: None. COMPLICATIONS: None. PROCEDURES: Right total knee arthroplasty performed by Dr. Gaming on 11/12/2017. BRIEF HISTORY: As dictated in history and physical. HOSPITAL SUMMARY: The patient was admitted on the above date and had the above-noted surgery performed which he tolerated well. On the first postoperative day, he was feeling well and had no complaints. Neurovascularly intact. Dressings clean, dry and intact. Toes were mobile. Vital signs were stable. He was afebrile. Hemoglobin was 11.2. His drain had inadvertently been pulled by the patient and was no longer having suction and it was then thusly removed later in the afternoon. The patient was progressing very well with his physical therapy, pain was controlled and he was remaining stable and it was felt that he could be discharged to home on 11/13/2017. For further review, please see chart. LABORATORY AND X-RAY DATA: As per chart. DISCHARGE INSTRUCTIONS: The patient was discharged to home in satisfactory condition on 11/13/2017. DIET: Regular. ACTIVITY: Follow TK instruction sheets and special care instructions. Weightbearing as tolerated, right lower extremity. FOLLOWUP: Follow up with Dr. Gaming in 2 weeks. The patient to call for appointment if one has not been made for you. DISCHARGE MEDICATIONS: Acetaminophen 1000 mg p.o. q. 8 hours for 14 days, aspirin 81 mg p.o. b.i.d., Celebrex 200 mg p.o. b.i.d., Zofran 8 mg p.o. q. 8 hours p.r.n., Nucynta 50-100 mg p.o. q. 4 hours p.r.n. Resume taking CoQ10 40 mg p.o. q.a.m., glucosamine chondroitin 1 cap p.o. q.a.m. After 30 days, stop taking aspirin twice daily and resume once daily dosing.
== END 2017-11-13 14:51 | disposition home health service (06) | DRG 470 ==
LOC: C.ACU 06:11 → C.3E 09:53 → ENRESERV 12:00
PROC: 0SRC0J9 Replacement of Right Knee Joint with Synthetic Substitute, Cemented, Open Approach (ICD-10-PCS; principal; 2017-11-12 08:15)
DX: M17.11 Unilateral primary osteoarthritis, right knee (principal); Z98.890 Other specified postprocedural states; Z85.828 Personal history of other malignant neoplasm of skin

== ENCOUNTER → 2017-11-24 | Day surgery (SDC) | payer OTHER, BC ==
[2017-10-13 11:57] VITALS: BMI 27.0
--- NOTE | 2017-10-13 12:31 | PAT Medication Instructions ---
Service Date Oct 13, 2017. Current Home Medication List Coenzyme Q10 (Ubidecarenone) (Coq10), 400 MG PO QAM Pipdmtvrtwk-Oudvtunuhcu-Wmy C- (Glucosamine Chondroitin), 1 CAP PO QAM Medication Instructions For Your Scheduled Surgery - Hold the following medications 2 weeks prior to surgery: Coenzyme Q10 (Ubidecarenone) (Coq10), 400 MG PO QAM Zwqguwpaaxf-Hpcirvkttbi-Cxe C- (Glucosamine Chondroitin), 1 CAP PO QAM If you have any questions please call us at [phone] or [phone] or [phone]
[2017-11-20 11:02] VITALS: Ht 175.3 cm; Wt 83.6 kg
[~2017-11-24] VITALS: Ht 175.3 cm; Wt 83.6 kg
[~2017-11-24] MED LIST changes: +500ML BSS 0.3ML EPI 1:1000PF IRRIG ONE; +ACET-24 PO; +ACETAMINOPHEN 325 MG TAB PO PRN; -ACETAMINOPHEN 500 MG TAB PO SCH; +AMVISC PLUS 0.8ML SYRINGE INT OCU ONE; +ASPEC81 PO; +ASPI81TA28 PO; +ATROPINE SULFATE 0.1 MG/ML 5ML SYR IV PRN; +BSS FLUSH ONE; -CEFAZOLIN 2000MG IV PUSH 10 ML IV SCH; +CLB200 PO; -CeleBREX 200 MG CAP PO SCH; -DEXAMETHASONE 4 MG TAB PO SCH; +EpHEDrine SULFATE INJ 50 MG/ML AMP IV PRN; +EpINEphrine INJ 1MG/ML AMP 1 MG/ML AMP ONE; -FAMOTIDINE 20 MG TAB PO SCH; -GABAPENTIN 300 MG CAP PO SCH; -LACTATED RINGER'S 1000ML 1,000 ML IV SCH; +LIDOCAINE 3.5% OPH GEL PER APPLICATION CHARGE ONE; +LIDOCAINE HCL 1% MPF 2 ML VIAL ONE; -METOCLOPRAMIDE HCL 10 MG TAB PO SCH; +MIDAZOLAM HCL 1 MG/ML 2ML VIAL ONE; +NCY50 PO; +OCUCOAT 1 ML SOLN IO ONE; +ONDA8TAB12 PO; +POVIDONE-IODINE OP SOLN 30 ML BTL ONE; +PROPARACAINE 0.5% OP SOLN PER DROP CHARGE OPL SCH; -ROPIVACAINE 5MG/ML 30 ML 150 MG, BUPIVACAINE 0.5% MPF INJ 30 ML, EpINEphrine HCL INJ 0.... INFIL SCH; +TOBRAMYCIN/DEXAMETHASONE OPH OINT PER APPLN CHARGE ONE
--- NOTE | 2017-11-24 09:34 | History & Physical Bridge - SC ---
H&P Re-Evaluation Bridge Note: I have examined the patient, reviewed the History & Physical and in the interval since the performance of the History & Physical I have noted the following changes of clinical significance: Diagnosis: Left Cataract Procedure: Left Cataract Removal with Lens Implant No changes noted
[2017-11-24] MEDS: PHENYLEPHRINE HCL 2.5% OP SOLN PER DROP CHARGE OPL SCH ×2 (09:38→09:43)
[2017-11-24] MEDS: TROPICAMIDE 1% OP SOLN PER DROP CHARGE OPL SCH ×2 (09:39→09:44)
[2017-11-24] MEDS: CYCLOPENTOLATE HCL 1% OP SOLN PER DROP CHARGE OPL SCH ×2 (09:40→09:45)
[2017-11-24] MEDS: KETOROLAC 0.5% OP SOLN PER DROP CHARGE OPL SCH ×2 (09:41→09:46)
[2017-11-24] MEDS: GATIFLOXACIN OP SOLN PER DROP CHARGE OPL SCH ×2 (09:42→09:52)
--- NOTE | 2017-11-24 10:17 | [facility] Operative Report ---
Operative Report Date of Service Nov 24, 2017. Operative Report 1. PREOPERATIVE DIAGNOSIS: Cataract of the left eye. 2. POSTOPERATIVE DIAGNOSIS: Same. 3. PROCEDURE: Phacoemulsification with intraocular lens implantation of the left eye. SURGEON: Dr. John Hinojosa. ANESTHESIA: Topical Lidocaine gel, 1% Non- Preserved intracameral Lidocaine, and monitored intravenous sedation. INDICATIONS FOR THE PROCEDURE: The patient is a 67 - year-old male with a history of cataract of the left eye causing significant visual impairment. The details of the proposed procedure were explained to the patient who asked appropriate questions and following discussion of all risks, benefits and alternatives agreed to have the procedure done. 4. OPERATION AND FINDINGS: DESCRIPTION OF PROCEDURE: After informed consent was obtained, the patient was brought to the Operating Room at the [facility]. The patient was placed in a supine position and then the left eye was prepped and draped in the usual sterile fashion for intraocular surgery. A drop of topical Lidocaine gel was placed in the operative eye. A wire lid speculum was then placed in the fornices. A corneal paracentesis was then created temporally. The Non-Preserved Lidocaine was then instilled into the anterior chamber. The anterior chamber was then pressurized with viscoelastic. A 2.0 mm clear corneal incision was then created temporally. A cystotome was inserted into the anterior chamber and used to create a tear in the anterior lens capsule. This capsular tear was then used to create a small flap and the flap was dragged in a counterclockwise direction in order to create a continuous curvilinear capsulorrhexis. Hydrodissection was accomplished with balanced salt solution. Phacoemulsification of the lens nucleus was then performed in a standard [id number] technique. The phaco time was 17 seconds with an average power of 11 %. The remaining cortical material was removed using irrigation aspiration. The capsular bag was then filled with viscoelastic. A Bausch [employer] Lomb MI60L +22.0 diopters lens was then loaded into the injector and injected into the capsular bag. The remaining viscoelastic was removed with the irrigation aspiration handpiece. The wound was hydrated and then checked and found to be watertight. The intraocular pressure was checked and found to be adequate. The wire lid speculum was removed and the patient's face was cleaned and dried. TobraDex ointment was placed in the inferior fornix. The patient was discharged to the Recovery Room having tolerated the procedure well. There were no complications. The patient will be seen tomorrow in the office for follow-up. I attest to the content of the Intraoperative Record and any orders documented therein. Any exceptions are noted below.
[2017-11-24 10:18] VITALS: TEMP 36.8
--- NOTE | 2017-11-24 10:18 | Discharge Instructions-SurgCtr ---
Discharge Instructions Date of Service Nov 24, 2017. Visit Reason for Visit: Cataract Left Eye Discharge Discharge Diagnosis / Problem: cataract Discharge Goals Goal(s): Improve function Medications Stopped Medications Name(s): Patient stopped routine medications since first october for knee surgery/cataracts. Only taking aspirin Activity Recommendations Activity Limitations: per Instructions/Follow-up section Anesthesia . Post Anesthesia Instructions: If you have had General Anesthesia or IV Sedation: * Do not drive today. * Resume driving when surgeon permits. * Do not make important decisions or sign legal documents today. * Call surgeon for: 1. Temperature elevations greater than 101 degrees F. 2. Uncontrollable pain. 3. Excessive bleeding. 4. Persistent nausea and vomiting. 5. Medication intolerance (nausea, vomiting or rash). * For nausea and vomiting use only clear liquids such as: tea, soda, bouillon until nausea subsides, then gradually increase diet as tolerated. * If you have any concerns or questions, call your surgeon's office. If physician is unavailable and it is an emergency, call 911 or go to the nearest emergency room. . Diet Recommendations Home Diet: resume previous diet Procedures Procedures Performed: Left Cataract Phacoemulsification With Intraocular Lens Implant Pending Studies Studies pending at discharge: no Medical Emergencies . Who to Call and When: Medical Emergencies: If at any time you feel your situation is an emergency, please call 911 immediately. . Non-Emergent Contact Non-Emergency issues call your: Housing Inspectors . . "Provider Documentation" section prepared by John Hinojosa. .
--- NOTE | 2017-11-24 10:30 | Anesthesia Progress Nt - [facility] ---
Anesthesia Post Op Note Date & Time Nov 24, 2017 at 10:30 Vital Signs Pain Intensity: 0 Vital Signs Past 12 Hours Date Time Temp Pulse Resp B/P (MAP) Pulse Ox O2 Delivery O2 Flow Rate FiO2 11/24/17 10:18 36.8 75 16 120/69 (86) 99 Room Air 11/24/17 09:21 36.6 70 20 123/70 (87) 99 Room Air Notes Mental Status: alert / awake / arousable, participated in evaluation Pt Amnestic to Procedure: Yes Nausea / Vomiting: adequately controlled Pain: adequately controlled Airway Patency, RR, SpO2: stable & adequate BP & HR: stable & adequate Hydration State: stable & adequate Anesthetic Complications: no major complications apparent
[2017-11-24 10:34] VITALS: BP 111/74; PULSE 67; O2SAT 97
== END | disposition home or self-care (01) ==
LOC: X.SURG 08:58
PROVIDERS: ATTEND Ophthalmology
DX: H26.9 Unspecified cataract (principal); M19.90 Unspecified osteoarthritis, unspecified site; N40.0 Benign prostatic hyperplasia without lower urinary tract symptoms; Z79.82 Long term (current) use of aspirin; E78.5 Hyperlipidemia, unspecified; Z90.89 Acquired absence of other organs; Z96.659 Presence of unspecified artificial knee joint; Z85.828 Personal history of other malignant neoplasm of skin; Z87.81 Personal history of (healed) traumatic fracture; Z80.42 Family history of malignant neoplasm of prostate; Z83.49 Family history of other endocrine, nutritional and metabolic diseases; Z81.8 Family history of other mental and behavioral disorders; Z79.84 Long term (current) use of oral hypoglycemic drugs; Z88.1 Allergy status to other antibiotic agents; Z88.5 Allergy status to narcotic agent

== ENCOUNTER → 2017-12-08 | Day surgery (SDC) | payer OTHER, BC ==
[2017-12-01 09:06] VITALS: Ht 175.3 cm; Wt 83.6 kg
[~2017-12-08] VITALS: Ht 175.3 cm; Wt 83.6 kg
[~2017-12-08] MED LIST changes: -ACET-24 PO; -ASPEC81 PO; -CLB200 PO; -COEN400C5 PO; +FENTANYL CITRATE INJ 50 MCG/1 ML 2 ML VIAL ONE; -GLUC1CAP35 PO; -NCY50 PO; -OCUCOAT 1 ML SOLN IO ONE; -ONDA8TAB12 PO; +ONDANSETRON INJ 2 MG/ML 2 ML VIAL IV PRN; -PROPARACAINE 0.5% OP SOLN PER DROP CHARGE OPL SCH; +PROPARACAINE 0.5% OP SOLN PER DROP CHARGE OPR SCH
[2017-12-08] MEDS: PHENYLEPHRINE HCL 2.5% OP SOLN PER DROP CHARGE OPR SCH ×2 (06:32→06:37)
[2017-12-08] MEDS: TROPICAMIDE 1% OP SOLN PER DROP CHARGE OPR SCH ×2 (06:33→06:38)
[2017-12-08] MEDS: CYCLOPENTOLATE HCL 1% OP SOLN PER DROP CHARGE OPR SCH ×2 (06:34→06:39)
[2017-12-08] MEDS: KETOROLAC 0.5% OP SOLN PER DROP CHARGE OPR SCH ×2 (06:35→06:40)
[2017-12-08] MEDS: GATIFLOXACIN OP SOLN PER DROP CHARGE OPR SCH ×2 (06:36→06:42)
--- NOTE | 2017-12-08 07:00 | History & Physical Bridge - SC ---
H&P Re-Evaluation Bridge Note: I have examined the patient, reviewed the History & Physical and in the interval since the performance of the History & Physical I have noted the following changes of clinical significance: Diagnosis: Right Cataract Procedure: Right Cataract Removal with Lens Implant No changes noted
--- NOTE | 2017-12-08 07:21 | [facility] Operative Report ---
Operative Report Date of Service Dec 08, 2017. Operative Report 1. PREOPERATIVE DIAGNOSIS: Cataract of the right eye. 2. POSTOPERATIVE DIAGNOSIS: Same. 3. PROCEDURE: Phacoemulsification with intraocular lens implantation of the right eye. SURGEON: Dr. John Hinojosa. ANESTHESIA: Topical Lidocaine gel, 1% Non- Preserved intracameral Lidocaine, and monitored intravenous sedation. INDICATIONS FOR THE PROCEDURE: The patient is a 67 - year-old male with a history of cataract of the right eye causing significant visual impairment. The details of the proposed procedure were explained to the patient who asked appropriate questions and following discussion of all risks, benefits and alternatives agreed to have the procedure done. 4. OPERATION AND FINDINGS: DESCRIPTION OF PROCEDURE: After informed consent was obtained, the patient was brought to the Operating Room at the [facility]. The patient was placed in a supine position and then the right eye was prepped and draped in the usual sterile fashion for intraocular surgery. A drop of topical Lidocaine gel was placed in the operative eye. A wire lid speculum was then placed in the fornices. A corneal paracentesis was then created temporally. The Non-Preserved Lidocaine was then instilled into the anterior chamber. The anterior chamber was then pressurized with viscoelastic. A 2.0 mm clear corneal incision was then created temporally. A cystotome was inserted into the anterior chamber and used to create a tear in the anterior lens capsule. This capsular tear was then used to create a small flap and the flap was dragged in a counterclockwise direction in order to create a continuous curvilinear capsulorrhexis. Hydrodissection was accomplished with balanced salt solution. Phacoemulsification of the lens nucleus was then performed in a standard [id number]-mzz-[id number] technique. The phaco time was 15 seconds with an average power of 9 %. The remaining cortical material was removed using irrigation aspiration. The capsular bag was then filled with viscoelastic. A Bausch & Lomb MI60L +21.5 diopters lens was then loaded into the injector and injected into the capsular bag. The remaining viscoelastic was removed with the irrigation aspiration handpiece. The wound was hydrated and then checked and found to be watertight. The intraocular pressure was checked and found to be adequate. The wire lid speculum was removed and the patient's face was cleaned and dried. TobraDex ointment was placed in the inferior fornix. The patient was discharged to the Recovery Room having tolerated the procedure well. There were no complications. The patient will be seen tomorrow in the office for follow-up. I attest to the content of the Intraoperative Record and any orders documented therein. Any exceptions are noted below.
--- NOTE | 2017-12-08 07:22 | Discharge Instructions-SurgCtr ---
Discharge Instructions Date of Service Dec 08, 2017. Visit Reason for Visit: Cataract Right Eye Discharge Discharge Diagnosis / Problem: cataract Discharge Goals Goal(s): Improve function Activity Recommendations Activity Limitations: per Instructions/Follow-up section Anesthesia . Post Anesthesia Instructions: If you have had General Anesthesia or IV Sedation: * Do not drive today. * Resume driving when surgeon permits. * Do not make important decisions or sign legal documents today. * Call surgeon for: 1. Temperature elevations greater than 101 degrees F. 2. Uncontrollable pain. 3. Excessive bleeding. 4. Persistent nausea and vomiting. 5. Medication intolerance (nausea, vomiting or rash). * For nausea and vomiting use only clear liquids such as: tea, soda, bouillon until nausea subsides, then gradually increase diet as tolerated. * If you have any concerns or questions, call your surgeon's office. If physician is unavailable and it is an emergency, call 911 or go to the nearest emergency room. . Diet Recommendations Home Diet: resume previous diet Procedures Procedures Performed: Right Cataract Phacoemulsification With Intraocular Lens Implant Pending Studies Studies pending at discharge: no Medical Emergencies . Who to Call and When: Medical Emergencies: If at any time you feel your situation is an emergency, please call 911 immediately. . Non-Emergent Contact Non-Emergency issues call your: Social Group Worker . . "Provider Documentation" section prepared by John Hinojosa. .
[2017-12-08 07:23] VITALS: TEMP 36.3
--- NOTE | 2017-12-08 07:46 | Anesthesiology Progress Note ---
Anesthesia Post Op Note Date & Time Dec 08, 2017 at 07:46 Vital Signs Pain Intensity: 0 Vital Signs Past 12 Hours Date Time Temp Pulse Resp B/P (MAP) Pulse Ox O2 Delivery O2 Flow Rate FiO2 12/08/17 07:23 36.3 56 12 112/63 (79) 94 Room Air 12/08/17 06:27 36.6 64 18 118/71 (87) 98 Room Air Notes Mental Status: alert / awake / arousable, participated in evaluation Pt Amnestic to Procedure: Yes Nausea / Vomiting: adequately controlled Pain: adequately controlled Airway Patency, RR, SpO2: stable & adequate BP & HR: stable & adequate Hydration State: stable & adequate Anesthetic Complications: no major complications apparent
[2017-12-08 07:47] VITALS: BP 116/67; PULSE 55; O2SAT 98
== END | disposition home or self-care (01) ==
LOC: X.SURG 06:07
PROVIDERS: ATTEND Ophthalmology
DX: H26.9 Unspecified cataract (principal); M19.90 Unspecified osteoarthritis, unspecified site; N40.0 Benign prostatic hyperplasia without lower urinary tract symptoms; R73.9 Hyperglycemia, unspecified; E78.5 Hyperlipidemia, unspecified; Z86.010 Personal history of colon polyps; Z96.659 Presence of unspecified artificial knee joint; Z79.82 Long term (current) use of aspirin; Z80.42 Family history of malignant neoplasm of prostate; Z83.49 Family history of other endocrine, nutritional and metabolic diseases

== ENCOUNTER 2018-12-20 23:38 | Observation (INO) ==
[2018-12-20] MEDS ORDERED: HYDROmorphone INJ 1 MG/ML SYRINGE IV STA (23:50)
[2018-12-20] MEDS ORDERED: SODIUM CHLORIDE 0.9% 1000ML 1,000 ML IV ONE (23:50)
[2018-12-20] MEDS ORDERED: ONDANSETRON INJ 2 MG/ML 2 ML VIAL IV STA (23:50)
[2018-12-21 00:09] LABS: Basophils # (auto) 0.02 K/uL (0-0.2); Basophils % (auto) 0.2 %; Eosinophils # (auto) 0.28 K/uL (0-0.5); Eosinophils % (auto) 3.3 %; Hematocrit (blood only) 44.8 % (42-52); Hemoglobin 15.1 g/dL (14.0-18.0); Immature Granulocytes # (auto) 0.02 K/uL (0.00-0.02); Immature Granulocytes % (auto) 0.2 %; Lymphocytes # (auto) 2.31 K/uL (1.2-3.4); Lymphocytes % (auto) 27.2 %; Mean Corpuscular Hgb Conc 33.7 g/dL (32-36); Mean Corpuscular Volume 94.3 fL (80-100); Mean Platelet Volume 10.1 fL (7.4-10.4); Monocytes # (auto) 0.82 K/uL (0.11-0.59); Monocytes % (auto) 9.6 %; Neutrophils # (auto) 5.05 K/uL (1.4-6.5); Neutrophils % (auto) 59.5 %; Platelet Count 252 K/uL (130-400); RDW Coefficient of Variation 13.2 % (11.5-14.5); RDW Standard Deviation 45.8 fL (36.4-46.3); Red Blood Count 4.75 M/uL (4.7-6.1)
[2018-12-21 00:28] LABS: BUN Creatinine Ratio 19.7 (10-20); Bilirubin Direct 0.2 mg/dl (0-0.2); Calcium 8.5 mg/dl (8.5-10.1); Est GFR (African American) 69.9; Est GFR (Non-African American) 60.3; Potassium 4.3 mmol/L (3.5-5.1)
[2018-12-21 00:31] LABS: Bilirubin,Total 0.7 mg/dl (0.2-1); Total Protein 7.6 gm/dl (6.4-8.2)
[2018-12-21] MEDS ORDERED: IOVERSOL 100ml IV PRN (01:07)
[2018-12-21] MEDS ORDERED: HYDROmorphone INJ 1 MG/ML SYRINGE IV STA (01:08)
[2018-12-21 01:41] LABS: Appearance Urine Clear (Clear); Bacteria Urine Automated Negative (Negative); Bilirubin Urine Negative (Negative); Blood Urine 2+ (Negative); Cast Urine Automated 0 /lpf (0-5); Color Urine Yellow; Glucose Urine UA Negative (Negative); Ketones Urine Negative (Negative); Leukocyte Esterase Urine Negative (Negative); Nitrite Urine Negative (Negative); Protein Urine Negative (Negative); Specific Gravity Urine 1.037 (1.000-1.030); Urobilinogen Urine Negative (Negative); pH Urine 5.5 (4.5-7.5)
[2018-12-21] MEDS ORDERED: SODIUM CHLORIDE 0.9% 1000ML 1,000 ML IV SCH (01:45)
[2018-12-21] MEDS ORDERED: HYDROmorphone INJ 0.5 MG/0.5 ML SYR IV STA ×2 (02:39→06:20)
[2018-12-21] MEDS ORDERED: TAMSULOSIN HCL 0.4 MG CAP PO ONE (02:39)
[2018-12-21] MEDS ORDERED: KETOROLAC TROMETHAMINE 15 MG/ML VIAL IV STA (02:39)
--- NOTE | 2018-12-21 05:29 | History & Physical Report ---
Date of Service December 21, 2018 Assessment & Plan (1) Left ureteral stone: 68 y/o M with a history of BPH and a ureteral calculus 15 years prior. The pt has had intermittent pain in his L back, groin and L leg for 5 days. The pain worsened the evening prior to admission and became persistent. A CT of the abdomen was obtained demonstrating a 5mm stone in distal L ureter - mild hydroureteronephrosis. he describes an episode of shaking, becoming lightheaded and vomiting once during a particularly severe bout of pain the prior evening. .He has not had fevers. 1) Obstruction caculus - distal and may yet pass. Placed on IVF, analgesics, antiemetics and Flomax. Urology consult requested. 2) Elevated PSA - follows at [facility] Full code - SCDs Total time for this admit including review of labs, meds, imaging, records - discussion with pt and ER attending - 35 min Present on Admission?: Yes History of Present Illness Chief Complaint: Flank/abdominal pain Primary Care Provider: Abner Coates MD 68 y/o M with a history of BPH and a ureteral calculus 15 years prior. The pt has had intermittent pain in his L back, groin and L leg for 5 days. The pain worsened the evening prior to admission and became persistent. A CT of the abdomen was obtained demonstrating a 5mm stone in distal L ureter - mild hydroureteronephrosis. he describes an episode of shaking, becoming lightheaded and vomiting once during a particularly severe bout of pain the prior evening. .He has not had fevers. 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 Allergies Allergy/AdvReac Type Severity Reaction Status Date / Time doxycycline Allergy Intermediate HIVES Verified 12/21/18 00:24 hydrocodone Allergy Intermediate RASH Verified 12/21/18 00:24 oxycodone Allergy Intermediate RASH Verified 12/21/18 00:24 Home Medications Home Medications Medication Instructions Recorded Confirmed Type aspirin [Aspir-81] 81 mg PO DAILY 12/21/18 12/21/18 History Past Med/Surg History Social History Feels Safe at Home: Yes Smoking Status: Never smoker Review of Systems Gen: Denies fevers, night sweats, rigors, fatigue, malaise, weight loss/gain ENT: Denies congestion, throat pain, hearing loss Eyes: Denies acute visual changes CV: Denies CP, palpitations Pulmonary: Denies SOB, cough, wheezing GI/: L lower abdominal pain and pain in groin Neuro: Denies acute or unilateral weakness, acute gait impairment, headache or acute visual changes Musculoskeletal: Denies joint pain, inflammation - L back/flank pain. L leg pain Endocrine: Denies polydipsia, polyuria Skin: Denies acute rashe or ulcers Physical Exam 2 Vital Signs (Past 24 Hours): Last Vital Signs Pulse 46 L 12/21/18 04:05 Resp 16 12/21/18 04:05 BP 110/61 12/21/18 04:05 Pulse Ox 97 12/21/18 04:05 Physical Exam: General: AAO x 3, no distress ENT: No erythema or exudates, no thrush Eyes: BONG, EOMI Head and neck: Normocephalic, atraumatic, No JVD, neck is supple. Chest/heart: Nontender, S1,2, RRR, no murmurs, no gallops Lungs: CTAB, no wheezing or crackles Abdomen: Nontender, nondistended, BS+ Neuro: AAO x 3, speech is clear, no unilateral weakness or loss of sensation, coordination intact Musculoskeletal: No joint inflammation, muscle tenderness, FROM Skin: No acute rashes or ulcers Extremities: No clubbing, cyanosis, edema Results & Data Diagnostic Findings CT abdomen: 5mm stone in distal L ureter - mild hydroureteronephrosis.
--- NOTE | 2018-12-21 06:01 | Emergency Department Note ---
Entered by Nicholas Qiu acting as a scribe for Jose Valiente MD ED Provider Note Name: Jordan Mcintosh Age: 68 Arrives Via: Private vehicle Informant: Patient CC: Left flank pain HPI: The patient is a 68 year old male who presents to the ED with his via private vehicle due to complaints of waxing and waning left flank pain that began 5 days and worsened this evening. Patient states the pain radiates to his testicles. He states the pain typically last for about an hour but did not resolve tonight. He adds he took Motrin for his pain with minimal relief. Patient adds that he has also had nausea, vomiting, and left leg swelling. Patients past medical history includes a left testicular hernia, left abdominal wall hernia, knee surgery last October, and an allergy to doxycycline. Patient denies diarrhea, abdominal pain, urinary burning, hematuria , smoking, regular alcohol use, and weird chemical exposure. ROS: See above HPI for pertinent positives & negatives. A total of 10 systems reviewed and were otherwise negative. Past Medical History: Left testicular hernia and left abdominal wall hernia Past Surgical History: Left knee surgery Family History: None Social History: Lives with family Home Medications: None Allergies Doxycycline Physical: Vitals: BP = 132/87 P = 83 Resp = 20 02 Sat = 100 Delivery = Room Air Exam: GENERAL: Patient is severely uncomfortable appearing, in moderate distress, and unable to sit still due to pain. EYES: No scleral icterus, unremarkable pupils. ENT: Mucous membranes moist, no nasal congestion. NECK: No masses appreciated, no meningismus, trachea is midline. RESPIRATORY: No dyspnea. Clear to auscultation and equal bilaterally. No wheeze , no rhonchi. CARDIOVASCULAR: Regular rate and rhythm. No murmurs, rubs, gallops appreciated. GASTROINTESTINAL: Abdomen soft, non-tender, no peritonitis. Bowel sounds positive. No masses appreciated. BACK: No midline tenderness, left CVA tenderness to palpation. EXTREMITIES: Normal motion all extremities, no cyanosis, no edema. NEUROLOGIC: Alert and oriented, no acute motor or sensory deficits, no focal weakness, cranial nerves grossly intact. SKIN: No rash, no jaundice, no diaphoresis. ED Course: Prior Medical Record, Triage/Nursing Notes, Medications, Allergies reviewed by Me Vital Signs: reviewed and remarkable for wnl Labs: Reviewed and remarkable for blood in ua, cbc, bmp ok Interventions: Saline Lock, Dilaudid 1mg IV x 2, Dilaudid 0.5mg IV, Toradol 10mg IV, Flomax 0.4mg PO Imaging: [facility] Radiologist interpretation reviewed by me: "CT ABDOMEN & PELVIS With Contrast: Comparison 08/17/12 5 mm stone within the left distal ureter. Mild upstream hydroureteronephrosis. Mild urinary bladder wall thickening which could be related to under distention and/or prostate hypertrophy. There is again asymmetric enlargement of the prostate, more prominent on the left side with transverse length 6 cm. Atherosclerosis including coronary artery calcifications. Fatty inguinal hernias, left larger than right. Small fatty umbilical hernia. Degenerative disc changes. Radiologist: Carlos Cheek MD" EKG: See below. Consults: 0310: I reviewed the patient's case with Dr. Johnson. He will evaluate the patient for further management. Times: 2331: Past medical records reviewed. The patient was evaluated in room C12A, and a complete history and physical examination were performed. 0010: I reevaluated the patient. He states his pain is now a 4/10 and only in his flank. Repeat abdominal exam was benign. Patient is awaiting CT scan. 0108: Patient is having increased pain and was given more pain medication via verbal order. 0238: I reevaluated the patient who states is now returning. 0258: Dr. Johnson was paged for the patient. 0321: Upon reevaluation, the patient will be further evaluated. I updated the patient on his treatment plan and findings. Patient is agreeable to the treatment plan. Patient will be assessed for further evaluation. Blood pressure: Normal. No Referral necessary Disposition: Hospitalization Differentials: Differential: Renal Colic, Pyelonephritis, Hydronephrosis, Appendicitis, Diverticulitis, Retroperitoneal, Bleed/Infection, Aortic Pathology , MSK, Neurologic Pathology, amongst other pathologies entertained. Medical Decision Making: Pleasant 68 yr old male in very much significant distress arrives for evaluation left flank pain. No history of similar nor stones and with age and location concern seemed reasonable getting with IV contrast and pressures good. Ct with mid ureteral stone and hydro. Labs looking OK. No evidence of infection. He was given many rounds pain meds and still uncomfortable. He was noted to have what appears to be second degree heart block on EKG. He has no cp , sob, no syncopal issues. Given intractable pain and other findings I feel hospitalization for control of pain and further monitoring is reasonable. Impression: Left ureteral stone Left hydronephrosis Intractable pain Heart Block AV Second Degree Jsoe Valiente MD The scribe's documentation has been prepared under my direction and personally reviewed by me in its entirety. I confirm that the note above accurately reflects all work, treatment, procedures, and medical decision making performed by me. Impression & Plan Left ureteral stone, Hydronephrosis, left, Intractable pain, Heart block AV second degree Past Med/Surg History Social History Feels Safe at Home: Yes Smoking Status: Never smoker Results & Data Vital Signs Vital Signs - 24 hr 12/20/18 23:51 12/21/18 00:00 12/21/18 00:02 Sepsis Recent Fever Within 48 Hours No Sepsis Action Taken by Nursing No Action Required Pulse Rate 83 Pulse Rate [Left Finger] 57 L Pulse Rate from SpO2 Sensor Pulse Rhythm [Left Finger] Pulse Strength [Left Finger] Respiratory Rate 20 16 Respiratory Effort / Characteristics Non-Labored Spontaneous Respiratory Depth Normal Respiratory Pattern Regular Blood Pressure 132/87 Blood Pressure [Right Arm] 137/83 Blood Pressure Mean 102 Blood Pressure Mean [Right Arm] 101 Blood Pressure Position Sitting Blood Pressure Position [Right Arm] Pulse Oximetry 100 84 L 100 Oxygen Delivery Method Room Air Room Air Room Air Oxygen Flow Rate 12/21/18 00:53 12/21/18 01:14 12/21/18 01:16 Sepsis Recent Fever Within 48 Hours Sepsis Action Taken by Nursing Pulse Rate 67 70 Pulse Rate [Left Finger] 66 Pulse Rate from SpO2 Sensor 66 72 Pulse Rhythm [Left Finger] Pulse Strength [Left Finger] Respiratory Rate 14 14 12 Respiratory Effort / Characteristics Respiratory Depth Respiratory Pattern Blood Pressure 128/70 120/67 Blood Pressure [Right Arm] 132/71 Blood Pressure Mean 89 84 Blood Pressure Mean [Right Arm] 91 Blood Pressure Position Blood Pressure Position [Right Arm] Pulse Oximetry 97 98 90 Oxygen Delivery Method Nasal Cannula Nasal Cannula Nasal Cannula Oxygen Flow Rate 2 2 2 12/21/18 01:30 12/21/18 01:31 12/21/18 01:45 Sepsis Recent Fever Within 48 Hours Sepsis Action Taken by Nursing Pulse Rate 68 63 71 Pulse Rate [Left Finger] Pulse Rate from SpO2 Sensor 68 66 70 Pulse Rhythm [Left Finger] Pulse Strength [Left Finger] Respiratory Rate 15 13 15 Respiratory Effort / Characteristics Respiratory Depth Respiratory Pattern Blood Pressure 116/65 105/55 L Blood Pressure [Right Arm] Blood Pressure Mean 82 71 Blood Pressure Mean [Right Arm] Blood Pressure Position Blood Pressure Position [Right Arm] Pulse Oximetry 100 98 97 Oxygen Delivery Method Nasal Cannula Nasal Cannula Nasal Cannula Oxygen Flow Rate 4 4 4 12/21/18 02:00 12/21/18 02:15 12/21/18 02:16 Sepsis Recent Fever Within 48 Hours Sepsis Action Taken by Nursing Pulse Rate 64 67 74 Pulse Rate [Left Finger] Pulse Rate from SpO2 Sensor 64 68 68 Pulse Rhythm [Left Finger] Pulse Strength [Left Finger] Respiratory Rate 13 12 13 Respiratory Effort / Characteristics Respiratory Depth Respiratory Pattern Blood Pressure 113/69 132/70 Blood Pressure [Right Arm] Blood Pressure Mean 83 90 Blood Pressure Mean [Right Arm] Blood Pressure Position Blood Pressure Position [Right Arm] Pulse Oximetry 98 97 99 Oxygen Delivery Method Oxygen Flow Rate 12/21/18 02:17 12/21/18 02:30 12/21/18 02:45 Sepsis Recent Fever Within 48 Hours Sepsis Action Taken by Nursing Pulse Rate 53 L 69 62 Pulse Rate [Left Finger] Pulse Rate from SpO2 Sensor 58 L 69 65 Pulse Rhythm [Left Finger] Pulse Strength [Left Finger] Respiratory Rate 16 12 14 Respiratory Effort / Characteristics Respiratory Depth Respiratory Pattern Blood Pressure 108/69 125/80 Blood Pressure [Right Arm] Blood Pressure Mean 82 95 Blood Pressure Mean [Right Arm] Blood Pressure Position Blood Pressure Position [Right Arm] Pulse Oximetry 98 98 94 Oxygen Delivery Method Nasal Cannula Nasal Cannula Nasal Cannula Oxygen Flow Rate 4 4 4 12/21/18 03:00 12/21/18 03:01 12/21/18 04:05 Sepsis Recent Fever Within 48 Hours Sepsis Action Taken by Nursing Pulse Rate 55 L 62 Pulse Rate [Left Finger] 46 L Pulse Rate from SpO2 Sensor 54 L 62 Pulse Rhythm [Left Finger] Regular Pulse Strength [Left Finger] Normal Respiratory Rate 14 12 16 Respiratory Effort / Characteristics Non-Labored Spontaneous Respiratory Depth Normal Respiratory Pattern Regular Blood Pressure 119/76 Blood Pressure [Right Arm] 110/61 Blood Pressure Mean 90 Blood Pressure Mean [Right Arm] 77 Blood Pressure Position Blood Pressure Position [Right Arm] Lying Pulse Oximetry 98 96 97 Oxygen Delivery Method Nasal Cannula Nasal Cannula Room Air Oxygen Flow Rate 4 4 Laboratory Data Result diagrams: 12/20/18 23:55 02/25/19 23:55 Lab Results 12/20/18 12/20/18 12/21/18 Range/Units 23:55 23:55 01:30 WBC 8.50 (4.8-10.8) K/uL RBC 4.75 (4.7-6.1) M/uL Hgb 15.1 (14.0-18.0) g/dL Hct 44.8 (42-52) % MCV 94.3 (80-100) fL MCH 31.8 (25-34) pg MCHC 33.7 (32-36) g/dL RDW Std Deviation 45.8 (36.4-46.3) fL RDW Coeff of [place]ba 13.2 (11.5-14.5) % Plt Count 252 (130-400) K/uL MPV 10.1 (7.4-10.4) fL Immature Gran % (Auto) 0.2 % Neut % (Auto) 59.5 % Lymph % (Auto) 27.2 % [place] % (Auto) 9.6 % Eos % (Auto) 3.3 % Baso % (Auto) 0.2 % Immature Gran # (Auto) 0.02 (0.00-0.02) K/uL Neut # (Auto) 5.05 (1.4-6.5) K/uL Lymph # (Auto) 2.31 (1.2-3.4) K/uL [place] # (Auto) 0.82 H (0.11-0.59) K/uL Eos # (Auto) 0.28 (0-0.5) K/uL Baso # (Auto) 0.02 (0-0.2) K/uL Sodium 141 (136-145) mmol/L Potassium 4.3 (3.5-5.1) mmol/L Chloride 105 (98-107) mmol/L Carbon Dioxide 29 (21-32) mmol/L Anion Gap 7.0 (3-11) BUN 24 H (7-18) mg/dl Creatinine 1.21 (0.6-1.4) mg/dl Est Cr Clr Drug Dosing 55.0 ml/min Est GFR ( Amer) 69.9 Est GFR (Non-Af Amer) 60.3 BUN/Creatinine Ratio 19.7 (10-20) Glucose 110 H (70-99) mg/dl Calcium 8.5 (8.5-10.1) mg/dl Total Bilirubin 0.7 (0.2-1) mg/dl Direct Bilirubin 0.2 (0-0.2) mg/dl AST 16 (15-37) U/L ALT 21 (12-78) U/L Alkaline Phosphatase 95 (45-117) U/L Total Protein 7.6 (6.4-8.2) gm/dl Albumin 4.0 (3.4-5.0) gm/dl Lipase 76 (73-393) U/L Urine Color Yellow Urine Appearance Clear (Clear) Urine pH 5.5 (4.5-7.5) Ur Specific [place] 1.037 H (1.000-1.030) Urine Protein Negative (Negative) Urine Glucose (UA) Negative (Negative) Urine Ketones Negative (Negative) Urine Blood 2+ H (Negative) Urine Nitrite Negative (Negative) Urine Bilirubin Negative (Negative) Urine Urobilinogen Negative (Negative) Ur Leukocyte Esterase Negative (Negative) Urine WBC (Auto) 1-5 (0-5) /hpf Urine RBC (Auto) 10-30 H (0-4) /hpf U Hyaline Cast (Auto) 0 (0-5) /lpf U Epithel Cells (Auto) 5-10 H (0-5) /lpf Urine Bacteria (Auto) Negative (Negative) Administered Medications Sodium Chloride (Nss 1000ml) 1,000 mls @ 125 mls/hr IV .Q8H [facility] Stop: 01/20/19 01:44 Last Admin: 12/21/18 01:50 Dose: 125 mls/hr Ioversol (Optiray 320 100ml) 94 ml IV ONCE PRN PRN Reason: Interaction Checking Stop: 12/25/18 01:06 Last Admin: 12/21/18 01:08 Dose: 94 ml Discontinued Medications Hydromorphone HCl (Dilaudid) 1 mg IV NOW STA Stop: 12/20/18 23:51 Last Admin: 12/20/18 23:55 Dose: 1 mg Hydromorphone HCl (Dilaudid) 1 mg IV NOW STA Stop: 12/21/18 01:09 Last Admin: 12/21/18 01:10 Dose: 1 mg Hydromorphone HCl (Dilaudid) 0.5 mg IV NOW STA Stop: 12/21/18 02:40 Last Admin: 12/21/18 02:44 Dose: 0.5 mg Sodium Chloride (Nss 1000ml) 1,000 mls @ 999 mls/hr IV .Q1H1M ONE Stop: 12/21/18 00:50 Last Infusion: 12/21/18 00:52 Dose: 0 mls/hr Admin: 12/20/18 23:55 Dose: 999 mls/hr Ketorolac Tromethamine (Toradol) 10 mg IV NOW STA Stop: 12/21/18 02:40 Last Admin: 12/21/18 02:44 Dose: 10 mg Ondansetron HCl (Zofran) 4 mg IV NOW STA Stop: 12/20/18 23:51 Last Admin: 12/20/18 23:55 Dose: 4 mg Tamsulosin HCl (Flomax) 0.4 mg PO NOW ONE Stop: 12/21/18 02:40 Last Admin: 12/21/18 02:44 Dose: 0.4 mg ECG Data Attestation: I personally reviewed and interpreted this ECG as follows: Indication: nausea Rate (beats per minute): 61 Rhythm: sinus rhythm Findings: + other (QTc = 448), + 1st degree AV block and + PAC; no acute ischemic change Additional Comments: Repeat EKG: Rhythm = Sinus bradycardia Findings = 1st degree AV block, QTc = 422, these may represent 2nd degree AV block with variable blocking pattern Discharge Plan Visit Data Chief Complaint: Testicular Pain Stated Complaint: PAIN IN LT TESTICLE TO BACK,BECOMING HARD ED Provider: Jose Valiente Discharge Problem: Left ureteral stone, Hydronephrosis, left, Intractable pain, Heart block AV second degree Patient Disposition: Being Evaluated by Hospitalist Forms Stand Alone Forms: My [facility] AP[facility] Labs Prescriptions Prescriptions: No Action aspirin [Aspir-81] 81 mg Tablet,Delayed Release (Dr/Ec) 81 mg PO DAILY RF: 0 Referrals Referrals: Abner Coates MD [Primary Care Provider] - The scribe's documentation has been prepared under my direction and personally reviewed by me in its entirety. I confirm that the note above accurately reflects all work, treatment, procedures, and medical decision making performed by me.
--- NOTE | 2018-12-21 06:39 | CT Scan Report ---
CT abd pelvis IV con only CT DOSE: 475.38 mGy.cm HISTORY: Flank pain left flank pain radiating to testicle TECHNIQUE: Multiaxial CT images of the abdomen and pelvis were performed following the use of intrave nous contrast. A dose lowering technique was utilized adhering to the principles of ALARA. COMPARISON STUDY: None. FINDINGS: Slight bibasilar interstitial lung change. Liver spleen and pancreas are unremarkable. Panc reas is fatty replaced. Right kidney is negative for hydronephrosis. Mild left hydroureteronephrosis. 5 mm mid left ureteral calcification. Distal aspects of the ureters are unremarkable. Prostate is enlarged. A small fat-cont aining inguinal hernias bilaterally. No evidence of bowel containment or incarceration. Nonobstructiv e bowel pattern. Mild reactive ileus. IMPRESSION: 1. 5 mm obstructing calculus mid left ureter. 2. Mild left hydroureteronephrosis. 3. Mild nonobstructive small bowel reactive ileus. The above report was generated using voice recognition software. It may contain grammatical, syntax or spelling errors. Electronically signed by: Bubba Caballero M.D. 12/21/2018 6:37 AM
[2018-12-21] MEDS ORDERED: ONDANSETRON INJ 2 MG/ML 2 ML VIAL IV PRN (07:41)
[2018-12-21] MEDS ORDERED: ACETAMINOPHEN 325 MG TAB PO PRN (07:41)
[2018-12-21] MEDS ORDERED: MAGNESIUM HYDROXIDE SUSP 30 ML UDC PO PRN (07:41)
[2018-12-21] MEDS ORDERED: POLYETHYLENE (MIRALAX) 17 GM PACK PO PRN (07:41)
[2018-12-21] MEDS ORDERED: ALUMINUM/MAGNESIUM SUSP 30 ML UDC PO PRN (07:41)
[2018-12-21] MEDS: D5W AND LACTATED RINGERS 1,000 ML IV SCH ×2 (08:26→21:05)
--- NOTE | 2018-12-21 08:26 | Urology Consultation ---
Date of Consultation December 21, 2018 Assessment & Plan (1) Left ureteral stone: 68y M with 5mm L distal ureteral stone, mild hydro. No renal stones. Hemodynamically stable Afebrile, nontoxic appearing Pain is controlled with IV medication. UA +blood only, not indicative of infection. We discussed options for treating stone including observation with maximum expulsion therapy including tamuslosin, IVF and pain control, vs ESWL procedure at later date, vs ureteral stent/URS/LL. Pt wishes to observe today - allow for diet. NPO at midnight to reassess Continue tamsulosin and IVFs. Will check kub today to assess for stone progression - images viewed - minimal progression. Please contact our service urgently if patient develops fever >38.2, pain becomes uncontrolled, or intractable vomiting. Thank you for the consultation, we will continue to follow closely with primary service. History of Present Illness Reason for Consultation: stone Requesting Physician: stone Attending Physician: Shay Johnson MD History of Present Illness 68y M with significant hx BPH, prostatitis, elevated PSA and remote hx nephrolithiasis 15 years ago. Presented to [facility] ED with complaint of L back, groin and L leg pain x5days. Diagnosed with 5mm L distal stone, mild hydro. Very large prostate. States he does not see a urologist regularly. Most recent episode of stones were approx 15 years ago, passed spontaneously. Unsure of laterality or composition of stone. Denies use of medication for BPH. BP soft, otherwise VS stable. Afebrile Reports flank pain coming in waves, consistent with renal colic. Pain was 1-2/10 at time of evaluation. Voiding spontaneously without difficulty. Having some urgency/frequency, not unchanged from his baseline however. Allergies Allergy/AdvReac Type Severity Reaction Status Date / Time doxycycline Allergy Intermediate HIVES Verified 12/21/18 00:24 hydrocodone Allergy Intermediate RASH Verified 12/21/18 00:24 oxycodone Allergy Intermediate RASH Verified 12/21/18 00:24 Home Medications Home Medications Medication Instructions Recorded Confirmed Type aspirin [Aspir-81] 81 mg PO DAILY 12/21/18 12/21/18 History Patient History Social History Current Living Situation: Spouse Other Information That Helps Us Care for You: No Feels Safe at Home: Yes Safety Concerns: Feels Safe At This Time Smoking Status: Never smoker Do You Dip or Chew Tobacco: No Second Hand Exposure: No Tobacco Cessation Education Requested by Patient: No Hx Alcohol Use: No Hx Substance Use: No Beliefs That Will Affect Care: None Preferred Language: [place] Communication Ability: Effective Astrochemist Required: No Review of Systems Constitutional: no fever and no chills Eyes: no problem reported Ear, Nose, Mouth, Throat: no ear pain and no tinnitus Respiratory: no cough and no dyspnea Cardiovascular: no chest pain Gastrointestinal: no abdominal pain Genitourinary (Male): + urinary frequency and + urinary urgency; no dysuria, no nocturia and no hematuria L flank pain/renal colic Integumentary: no acne and no boil Neurologic: no confusion and no problem reported Psychiatric: no behavioral changes Endocrine: no fatigue and no polydipsia Hematologic / Lymphatic: no easy bleeding Allergy / Immunological: no GI upset with certain foods and no problem reported Physical Exam 2 Vital Signs (Past 24 Hours): Last Vital Signs Pulse 52 L 12/21/18 07:53 Resp 16 12/21/18 07:53 BP 109/71 12/21/18 07:53 Pulse Ox 100 12/21/18 07:53 Constitutional: well nourished; no acute distress Eyes: no nystagmus ENMT: Mouth: no trismus Neck: trachea midline Respiratory: no respiratory distress, no labored breathing and does not use accessory muscles Cardiovascular: Vessels: no JVD Extremities: no edema Gastrointestinal (Abdomen): Inspection/Auscultation: abdomen not distended and no abdominal edema Musculoskeletal: Head/Neck/Chest: normocephalic Skin: no rashes, warm and dry Neurologic: awake; not confused and not obtunded Psychiatric: Orientation: alert and oriented x 3 Eye Contact: good eye contact Genitourinary: bladder nondistended Lymphatic: no lymphadenopathy Results & Data Laboratory Results Laboratory Results - last 48 hr 12/20/18 12/20/18 12/21/18 23:55 23:55 01:30 WBC 8.50 RBC 4.75 Hgb 15.1 Hct 44.8 MCV 94.3 MCH 31.8 MCHC 33.7 RDW Std Deviation 45.8 RDW Coeff of [place] 13.2 Plt Count 252 MPV 10.1 Immature Gran % (Auto) 0.2 Neut % (Auto) 59.5 Lymph % (Auto) 27.2 [place] % (Auto) 9.6 Eos % (Auto) 3.3 Baso % (Auto) 0.2 Immature Gran # (Auto) 0.02 Neut # (Auto) 5.05 Lymph # (Auto) 2.31 [place] # (Auto) 0.82 H Eos # (Auto) 0.28 Baso # (Auto) 0.02 Sodium 141 Potassium 4.3 Chloride 105 Carbon Dioxide 29 Anion Gap 7.0 BUN 24 H Creatinine 1.21 Est Cr Clr Drug Dosing 55.0 Est GFR ( Amer) 69.9 Est GFR (Non-Af Amer) 60.3 BUN/Creatinine Ratio 19.7 Glucose 110 H Calcium 8.5 Total Bilirubin 0.7 Direct Bilirubin 0.2 AST 16 ALT 21 Alkaline Phosphatase 95 Total Protein 7.6 Albumin 4.0 Lipase 76 Urine Color Yellow Urine Appearance Clear Urine pH 5.5 Ur Specific [place] 1.037 H Urine Protein Negative Urine Glucose (UA) Negative Urine Ketones Negative Urine Blood 2+ H Urine Nitrite Negative Urine Bilirubin Negative Urine Urobilinogen Negative Ur Leukocyte Esterase Negative Urine WBC (Auto) 1-5 Urine RBC (Auto) 10-30 H U Hyaline Cast (Auto) 0 U Epithel Cells (Auto) 5-10 H Urine Bacteria (Auto) Negative
[2018-12-21] MEDS: ASPIRIN 81 MG ECTAB PO SCH (08:54)
--- NOTE | 2018-12-21 09:37 | XRay Report ---
KUB HISTORY: Left ureteral calculus follow-up study. distal L ureteral stone, check progression COMPARISON: CT abdomen and pelvis 12/21/2018. FINDINGS: The bowel gas pattern is non-obstructive. There is no organomegaly. Retained contrast note d about the left kidney and left ureter which shows mild hydroureteronephrosis with calyceal blunting . Contrast also noted within the urinary bladder lumen which shows trabeculation. There is suggestion of a 5 mm calculus about the mid to distal left ureter which is unchanged from comparison. No additi onal nephrolithiasis No pneumoperitoneum or pneumatosis. No fracture. IMPRESSION: Unchanged positioning of the 5 mm calculus about the mid to distal left ureter with mild left-sided h ydroureteronephrosis. Electronically signed by: Shaheed Anderson M.D. 12/21/2018 9:35 AM
--- NOTE | 2018-12-21 09:51 | Family Medicine Progress Note ---
Date of Service December 21, 2018 Physical Exam Vital Signs (Past 24 Hours): Last Vital Signs Pulse 52 L 12/21/18 07:53 Resp 16 12/21/18 07:53 BP 109/71 12/21/18 07:53 Pulse Ox 100 12/21/18 07:53
[2018-12-21] MEDS: HYDROmorphone INJ 0.5 MG/0.5 ML SYR IV PRN ×2 (10:07→17:37)
--- NOTE | 2018-12-22 07:11 | Family Medicine Progress Note ---
Date of Service December 22, 2018 Physical Exam Vital Signs (Past 24 Hours): Last Vital Signs Temp 37.2 C 12/21/18 23:15 Pulse 57 L 12/21/18 23:15 Resp 16 12/21/18 23:15 BP 100/56 L 12/21/18 23:15 Pulse Ox 94 12/21/18 23:15
[2018-12-22 07:56] LABS: Basophils # (auto) 0.02 K/uL (0-0.2); Basophils % (auto) 0.4 %; Eosinophils # (auto) 0.17 K/uL (0-0.5); Eosinophils % (auto) 3.1 %; Hemoglobin 12.4 g/dL (14.0-18.0); Immature Granulocytes # (auto) 0.02 K/uL (0.00-0.02); Immature Granulocytes % (auto) 0.4 %; Mean Corpuscular Hgb Conc 32.6 g/dL (32-36); Mean Corpuscular Volume 96.2 fL (80-100); Monocytes # (auto) 0.61 K/uL (0.11-0.59); Monocytes % (auto) 11.2 %; Neutrophils # (auto) 3.43 K/uL (1.4-6.5); Neutrophils % (auto) 62.9 %; Platelet Count 174 K/uL (130-400); RDW Coefficient of Variation 13.3 % (11.5-14.5); RDW Standard Deviation 46.4 fL (36.4-46.3); Red Blood Count 3.95 M/uL (4.7-6.1); White Blood Count 5.45 K/uL (4.8-10.8)
[2018-12-22] MEDS: ASPIRIN 81 MG ECTAB PO SCH (07:58)
[2018-12-22] MEDS: D5W AND LACTATED RINGERS 1,000 ML IV SCH (07:59)
[2018-12-22 08:30] LABS: BUN Creatinine Ratio 16.3 (10-20); Calcium 8.3 mg/dl (8.5-10.1); Est GFR (African American) 79.3; Est GFR (Non-African American) 68.4; Potassium 4.6 mmol/L (3.5-5.1)
--- NOTE | 2018-12-22 08:34 | XRay Report ---
XR KUB CLINICAL HISTORY: L ureteral stone progression nephrocalcinosis COMPARISON STUDY: 12/21/2018 FINDINGS: The mid left ureteral calculus appears unchanged compared to the prior study. Pelvic vascul ar calcifications is similar. Nonobstructing bowel pattern. IMPRESSION: Unchanged position of a mid left ureteral calculus. The above report was generated using voice recognition software. It may contain grammatical, syntax or spelling errors. Electronically signed by: Bubba Caballero M.D. 12/22/2018 8:33 AM
--- NOTE | 2018-12-22 10:42 | Urology Progress Note ---
Date of Service December 22, 2018 Assessment & Plan (1) Left ureteral stone: 68y M with 5-6mm L mid-distal ureteral stone, mild hydro. Elevated PSA Pt is clinically stable. Position unchanged from yesterday. Stone visible on KUB. Pt is comfortable, required IV pain medication at 1730 last evening. Able to sleep through the night. Able to converse and laugh without discomfort. Discussed options for MET vs ESWL vs stent/URS Pt is anxious to go home, would like to avoid invasive procedures/stenting. He would like to pursue ESWL therapy as outpatient next week. Instructed to stop baby ASA now. S/S to return to hospital reviewed, pt verbalizes understanding. Pt ready to d/c home from standpoint with tamsulosin and pain control. Side effects reviewed. Outpatient f/u arranged for Thursday, 12/27 at 940am with MANUELA Pierre. Elevated PSA will need attention following resolution of acute stone event. Subjective 68y M with 5-6mm L distal ureteral stone, mild hydro VSS, afebrile. Nontoxic appearing. Uneventful evening, two episodes of pain yesterday, subsided quickly. Reports he has not passed stone, continues to strain. Able to tolerate PO well. Denies urg/freq or pain with urination. Denies hematuria. Review of Systems All systems reviewed & are unremarkable except as noted in HPI & below Physical Exam Vital Signs (Past 24 Hours): Last Vital Signs Temp 36.5 C 12/22/18 07:45 Pulse 60 12/22/18 07:45 Resp 16 12/22/18 07:45 BP 120/74 12/22/18 07:45 Pulse Ox 98 12/22/18 07:45 Physical Exam: A&Ox3, appears comfortable. RRR Abd soft, nontender bladder nondistended Results & Data Laboratory Results Laboratory Results - last 48 hr 12/20/18 12/20/18 12/21/18 23:55 23:55 01:30 WBC 8.50 RBC 4.75 Hgb 15.1 Hct 44.8 MCV 94.3 MCH 31.8 MCHC 33.7 RDW Std Deviation 45.8 RDW Coeff of [place] 13.2 Plt Count 252 MPV 10.1 Immature Gran % (Auto) 0.2 Neut % (Auto) 59.5 Lymph % (Auto) 27.2 [place] % (Auto) 9.6 Eos % (Auto) 3.3 Baso % (Auto) 0.2 Immature Gran # (Auto) 0.02 Neut # (Auto) 5.05 Lymph # (Auto) 2.31 [place] # (Auto) 0.82 H Eos # (Auto) 0.28 Baso # (Auto) 0.02 Sodium 141 Potassium 4.3 Chloride 105 Carbon Dioxide 29 Anion Gap 7.0 BUN 24 H Creatinine 1.21 Est Cr Clr Drug Dosing 55.0 Est GFR ( Amer) 69.9 Est GFR (Non-Af Amer) 60.3 BUN/Creatinine Ratio 19.7 Glucose 110 H Calcium 8.5 Total Bilirubin 0.7 Direct Bilirubin 0.2 AST 16 ALT 21 Alkaline Phosphatase 95 Total Protein 7.6 Albumin 4.0 Lipase 76 Urine Color Yellow Urine Appearance Clear Urine pH 5.5 Ur Specific [place] 1.037 H Urine Protein Negative Urine Glucose (UA) Negative Urine Ketones Negative Urine Blood 2+ H Urine Nitrite Negative Urine Bilirubin Negative Urine Urobilinogen Negative Ur Leukocyte Esterase Negative Urine WBC (Auto) 1-5 Urine RBC (Auto) 10-30 H U Hyaline Cast (Auto) 0 U Epithel Cells (Auto) 5-10 H Urine Bacteria (Auto) Negative 12/22/18 12/22/18 07:32 07:32 WBC 5.45 RBC 3.95 L Hgb 12.4 L Hct 38.0 L MCV 96.2 MCH 31.4 MCHC 32.6 RDW Std Deviation 46.4 H RDW Coeff of [place] 13.3 Plt Count 174 MPV 10.0 Immature Gran % (Auto) 0.4 Neut % (Auto) 62.9 Lymph % (Auto) 22.0 [place] % (Auto) 11.2 Eos % (Auto) 3.1 Baso % (Auto) 0.4 Immature Gran # (Auto) 0.02 Neut # (Auto) 3.43 Lymph # (Auto) 1.20 [place] # (Auto) 0.61 H Eos # (Auto) 0.17 Baso # (Auto) 0.02 Sodium 142 Potassium 4.6 Chloride 110 H Carbon Dioxide 28 Anion Gap 4.0 BUN 18 Creatinine 1.09 Est Cr Clr Drug Dosing 61.0 Est GFR ( Amer) 79.3 Est GFR (Non-Af Amer) 68.4 BUN/Creatinine Ratio 16.3 Glucose 94 Calcium 8.3 L Total Bilirubin Direct Bilirubin AST ALT Alkaline Phosphatase Total Protein Albumin Lipase Urine Color Urine Appearance Urine pH Ur Specific [place] Urine Protein Urine Glucose (UA) Urine Ketones Urine Blood Urine Nitrite Urine Bilirubin Urine Urobilinogen Ur Leukocyte Esterase Urine WBC (Auto) Urine RBC (Auto) U Hyaline Cast (Auto) U Epithel Cells (Auto) Urine Bacteria (Auto)
--- NOTE | 2018-12-22 18:35 | Discharge Summary ---
Date of Service December 22, 2018 Admission HPI Per Admitting Provider 68 y/o M with a history of BPH and a ureteral calculus 15 years prior. The pt has had intermittent pain in his L back, groin and L leg for 5 days. The pain worsened the evening prior to admission and became persistent. A CT of the abdomen was obtained demonstrating a 5mm stone in distal L ureter - mild hydroureteronephrosis. he describes an episode of shaking, becoming lightheaded and vomiting once during a particularly severe bout of pain the prior evening. .He has not had fevers. 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 Chest/heart: Nontender, S1,2, RRR, no murmurs, no gallops Lungs: CTAB, no wheezing or crackles Abdomen: Nontender, nondistended, BS+ Neuro: AAO x 3, speech is clear, no unilateral weakness or loss of sensation, coordination intact Musculoskeletal: No joint inflammation, muscle tenderness, FROM Skin: No acute rashes or ulcers Extremities: No clubbing, cyanosis, edema Discharge Data Consultations 12/21/18 02:51 ED Decision to Admit Stat 12/21/18 07:41 Consult Urology Routine Hospital Course (1) Left ureteral stone: (2) Hydronephrosis, left: 68 y/o M with a history of BPH and a ureteral calculus 15 years prior. The pt has had intermittent pain in his L back, groin and L leg for 5 days. The pain worsened the evening prior to admission and became persistent. A CT of the abdomen was obtained demonstrating a 5mm stone in distal L ureter , mild hydroureteronephrosis. he describes an episode of shaking, becoming lightheaded and vomiting once during a particularly severe bout of pain the prior evening. Patient remained afebrile, vss during hospital stay, he was given IV fluids, pain was controlled during hospital course with Dilaudid prn. Urology was consulted. Repeat KUB after 24-48 hrs of admission shown no change in stone location. Patient decided to forego ureteroscopy to remove stone and in coordination with Urology made decision to seek lithotripsy from the outpatient setting after discharge. He was scheduled for lithotripsy 12/31 with the chance stone might pass on its own prior to that date. He was told to return or call pcp or urology office if pain was inadequately controlled. Supervising Physician Co-Signing Physician Notes I saw the patient with the resident physician and confirmed ramos portion of the history and physical exam. I agree with the impression and plan as noted above. Patient has elected for outpatient lithotripsy to be scheduled a week from Thursday. We discussed signs and symptoms of infection and other indications to return to the hospital. Patient will continue on tamsulosin daily. Given his allergies to oxycodone and hydrocodone will try tramadol as needed pain. The patient notes that he had taken this previously status post knee surgery without difficulty.
== END 2018-12-22 14:25 | disposition home or self-care (01) ==
LOC: ED 23:38 → 3N 23:38 → SUATTDRO 12-21 05:47 → 3N 12-21 07:15
DX: N13.2 Hydronephrosis with renal and ureteral calculous obstruction; I44.1 Atrioventricular block, second degree; R11.2 Nausea with vomiting, unspecified; R42 Dizziness and giddiness; N40.0 Benign prostatic hyperplasia without lower urinary tract symptoms